=== PATIENT | male | born 1950 | race Caucasian/White ===

== ENCOUNTER 2018-05-06 20:30 | Observation (INO) | payer MEDICARE ==
[~2018-05-06] VITALS: Ht 172.7 cm; Wt 90.0 kg
[~2018-05-06 20:30] MED LIST: ALBU8.5H8 IH; AMLO10TA PO; ASPI-1265 PO; ATOR40TA3 PO; AZI25OT PO; CARB200T7 PO; GABA-532 PO; LACT1CAP26 PO; LISI-600 PO; MULT-933 PO; NICO-687 TD; PANT40TA4 PO; PRED20TA PO; TIOT4MIS3 IH
[2018-05-06 21:22] LABS: BASOPHILS % (AUTO) 0.4 % (0-1); EOSINOPHILS # (AUTO) 0.6 X10'3 (0-0.9); EOSINOPHILS % (AUTO) 6.7 % (0-6); HEMATOCRIT 38.1 % (42.0-52.0); LYMPHOCYTES % (AUTO) 23.9 % (21-51); MEAN CORPUSCULAR HEMOGLOBIN 33.6 PG (27.0-31.0); MEAN CORPUSCULAR VOLUME 98.9 FL (78-98); MEAN PLATELET VOLUME 6.3 FL (7.4-10.4); MONOCYTES % (AUTO) 11.6 % (2-12); NEUTROPHILS # (AUTO) 4.9 X10'3 (1.8-7.7); NEUTROPHILS % (AUTO) 57.4 % (42-75); PLATELET COUNT 218 X10'3 (140-440); RED BLOOD COUNT 3.86 X10'6 (4.70-6.10); RED CELL DISTRIBUTION WIDTH 14.8 % (11.5-14.5); WHITE BLOOD COUNT 8.5 X10'3 (4.5-11.0)
[2018-05-06] MEDS ORDERED: AMLODIPINE BESYLATE 10 MG TABS (21:26)
[2018-05-06] MEDS ORDERED: LISINOPRIL 40 MG (21:26)
[2018-05-06] MEDS ORDERED: PANTOPRAZOLE SODIUM 40 MG TBEC PO (21:26)
[2018-05-06] MEDS ORDERED: ATORVASTATIN CALCIUM 40 MG TAB PO (21:26)
[2018-05-06] MEDS ORDERED: EPITOL PO (21:26)
[2018-05-06] MEDS ORDERED: GABAPENTIN 300 MG CAPS (21:26)
[2018-05-06 21:32] LABS: PARTIAL THROMBOPLASTIN TIME 25 SECONDS (22-32)
[2018-05-06 21:39] LABS: ALANINE AMINOTRANSFERASE 26 U/L (12-78); ALBUMIN 3.5 G/DL (3.4-5.0); ALBUMIN/GLOBULIN RATIO 1.2 (1.1-1.5); ALKALINE PHOSPHATASE 109 IU/L (46-116); ANION GAP 10 (8-16); ASPARTATE AMINO TRANSFERASE 24 U/L (10-37); BILIRUBIN,TOTAL 0.2 MG/DL (0.1-1.0); BLOOD UREA NITROGEN 16 MG/DL (7-18); BUN/CREATININE RATIO 13.8 (5.4-32.0); CALCIUM 8.6 MG/DL (8.5-10.1); CHLORIDE 98 MMOL/L (99-107); CREATININE 1.16 MG/DL (0.60-1.10); GLUCOSE 98 MG/DL (70-104); POTASSIUM 4.1 MMOL/L (3.5-5.1); SODIUM 132 MMOL/L (135-145); TOTAL CARBON DIOXIDE 24.5 MMOL/L (24-32); TOTAL PROTEIN 6.5 G/DL (6.4-8.2); eGFR 63 ML/MIN
[2018-05-07] VITALS (14 sets, daily range): BP systolic 122–164; BP diastolic 47–103
[2018-05-07] MEDS ORDERED: magnesium hydroxide 30ml (MOM) UD suspension PO PRN (02:45)
[2018-05-07] MEDS ORDERED: ondansetron/PF 4mg/2ml inj IV PRN (02:45)
[2018-05-07] MEDS ORDERED: mag hydrox/Alum hydrox/simeth 30ml oral suspension PO PRN (02:45)
[2018-05-07] MEDS ORDERED: acetaminophen 325mg tablet PO PRN (02:45)
[2018-05-07] MEDS: albuterol 2.5 MG/3 ML nebule NEB PRN ×2 (04:08→16:39)
[2018-05-07] MEDS ORDERED: pantoprazole 40mg Tablet.DR PO SCH (07:30)
[2018-05-07] MEDS ORDERED: regadenoson 0.4mg/5ml syringe IV ONE ×2 (07:55→12:50)
[2018-05-07] MEDS ORDERED: CAFFEINE CITRATE 60 MG/3 ML injection vial IV PRN (07:55)
[2018-05-07] MEDS ORDERED: metoprolol tartrate 1mg/ml inj IV PRN (07:55)
[2018-05-07] MEDS ORDERED: nitroGLYCERIN 0.4mg SUBLingual tab SL PRN (07:55)
[2018-05-07] MEDS ORDERED: aspirin 81mg tab.chew PO SCH (08:00)
[2018-05-07] MEDS ORDERED: carBAMazepine 100mg chewable tablet PO SCH (08:00)
[2018-05-07] MEDS ORDERED: lisinopril 20mg tablet PO SCH (08:00)
[2018-05-07] MEDS ORDERED: amLODIPine 5mg tablet PO SCH (08:00)
[2018-05-07] MEDS ORDERED: heparin, porcine 5000 units/ml vial SQ SCH (08:00)
[2018-05-07] MEDS ORDERED: gabapentin 300mg capsule PO SCH (08:00)
[2018-05-07] MEDS ORDERED: CAFFEINE CITRATE 60 MG/3 ML injection vial IV ONE (12:50)
[2018-05-07] MEDS ORDERED: atorvastatin 20mg tablet PO SCH (21:00)
== END 2018-05-07 17:47 | disposition home or self-care (01) ==
LOC: ER 20:30 → ED HOLD 05-07 02:41 → PCU 3S 05-07 03:30
PROVIDERS: ADMIT Internal Medicine; ATTEND Hospitalist
DX: R07.89 Other chest pain (principal); R51 Headache; N28.9 Disorder of kidney and ureter, unspecified; I10 Essential (primary) hypertension; E78.5 Hyperlipidemia, unspecified; E78.00 Pure hypercholesterolemia, unspecified; D64.9 Anemia, unspecified; E87.1 Hypo-osmolality and hyponatremia; K21.9 Gastro-esophageal reflux disease without esophagitis; J44.9 Chronic obstructive pulmonary disease, unspecified; G62.9 Polyneuropathy, unspecified; M19.90 Unspecified osteoarthritis, unspecified site; M21.961 Unspecified acquired deformity of right lower leg; I25.2 Old myocardial infarction; I25.119 Atherosclerotic heart disease of native coronary artery with unspecified angina pectoris; F17.200 Nicotine dependence, unspecified, uncomplicated; G89.29 Other chronic pain; I24.9 Acute ischemic heart disease, unspecified; Z79.82 Long term (current) use of aspirin; Z95.0 Presence of cardiac pacemaker
CPT/HCPCS: 36415; 71045; 78452; 80053; 84484; 85025; 85610; 85730; 87070; 93005; 93017; 94640; 94760; 96374; 99285; A6449; A9500; G0378; J1644

== ENCOUNTER 2018-05-22 17:34 | Emergency (ER) | payer MEDICARE ==
[~2018-05-22] VITALS: Ht 172.7 cm; Wt 88.1 kg
[~2018-05-22 17:34] MED LIST changes: -AZI25OT PO; -CARB200T7 PO; +EPITOL PO; -LACT1CAP26 PO; -PANT40TA4 PO; -PRED20TA PO
[2018-05-22 18:20] LABS: BASOPHILS % (AUTO) 0.6 % (0-1); EOSINOPHILS # (AUTO) 0.5 X10'3 (0-0.9); EOSINOPHILS % (AUTO) 6.5 % (0-6); HEMATOCRIT 41.3 % (42.0-52.0); HEMOGLOBIN 14.5 g/dl (14.0-17.9); LYMPHOCYTES # (AUTO) 2.6 X10'3 (1.1-4.8); LYMPHOCYTES % (AUTO) 31.8 % (21-51); MEAN CORPUSCULAR HEMOGLOBIN 34.4 PG (27.0-31.0); MEAN CORPUSCULAR HGB CONC 35.1 % (33.0-36.5); MEAN PLATELET VOLUME 5.8 FL (7.4-10.4); MONOCYTES # (AUTO) 0.9 X10'3 (0-0.9); MONOCYTES % (AUTO) 10.8 % (2-12); NEUTROPHILS % (AUTO) 50.3 % (42-75); PLATELET COUNT 349 X10'3 (140-440); RED BLOOD COUNT 4.21 X10'6 (4.70-6.10); RED CELL DISTRIBUTION WIDTH 13.9 % (11.5-14.5)
[2018-05-22 18:30] LABS: CLARITY,URINE Clear (Clear); COLOR,URINE Yellow (Yellow); GLUCOSE, URINE Negative (Neg); KETONES,URINE Negative (Neg); LEUKOCYTE ESTERASE ,URINE Negative (Neg); NITRITES, URINE Negative (Neg); OCCULT BLOOD,URINE Trace (Neg); PH,URINE 7.5 (4.8-8.0); PROTEIN,URINE Negative (Neg)
[2018-05-22 18:34] LABS: ALANINE AMINOTRANSFERASE 27 U/L (12-78); ALBUMIN 4.1 G/DL (3.4-5.0); ALBUMIN/GLOBULIN RATIO 1.2 (1.1-1.5); ALKALINE PHOSPHATASE 149 IU/L (46-116); ANION GAP 8 (8-16); ASPARTATE AMINO TRANSFERASE 31 U/L (10-37); BILIRUBIN,TOTAL 0.4 MG/DL (0.1-1.0); BLOOD UREA NITROGEN 20 MG/DL (7-18); BUN/CREATININE RATIO 16.3 (5.4-32.0); CALCIUM 8.6 MG/DL (8.5-10.1); CHLORIDE 89 MMOL/L (99-107); CREATININE 1.23 MG/DL (0.60-1.10); GLUCOSE 100 MG/DL (70-104); POTASSIUM 4.8 MMOL/L (3.5-5.1); SODIUM 122 MMOL/L (135-145); TOTAL CARBON DIOXIDE 24.6 MMOL/L (24-32); TOTAL PROTEIN 7.4 G/DL (6.4-8.2); eGFR 59 ML/MIN
[2018-05-22 18:41] LABS: UA COLLECTION TYPE CLN CATCH MIDSTREAM
[2018-05-22 18:47] LABS: BACTERIA,URINE NONE SEEN /HPF (Neg); SQUAMOUS EPITHELIAL CELL,UR NONE SEEN /LPF (FEW); WBC,URINE NONE SEEN /HPF (0-4)
[2018-05-22 20:02] VITALS: BP 135/89
== END 2018-05-22 20:04 | disposition home or self-care (01) ==
LOC: ER 17:35
DX: E87.1 Hypo-osmolality and hyponatremia (principal); G62.9 Polyneuropathy, unspecified; I25.10 Atherosclerotic heart disease of native coronary artery without angina pectoris; E78.00 Pure hypercholesterolemia, unspecified; I10 Essential (primary) hypertension; I25.2 Old myocardial infarction; Z79.82 Long term (current) use of aspirin; Z79.899 Other long term (current) drug therapy
CPT/HCPCS: 36415; 80053; 81001; 85025; 99284

== ENCOUNTER 2018-08-22 08:46 | Emergency (ER) | payer MEDICARE ==
[~2018-08-22] VITALS: Ht 170.2 cm; Wt 80.0 kg
[2018-08-22 09:47] LABS: BASOPHILS # (AUTO) 0.1 X10'3 (0-0.2); BASOPHILS % (AUTO) 1.2 % (0-1); EOSINOPHILS # (AUTO) 0.3 X10'3 (0-0.9); EOSINOPHILS % (AUTO) 4.1 % (0-6); HEMATOCRIT 43.5 % (42.0-52.0); HEMOGLOBIN 15.2 g/dl (14.0-17.9); LYMPHOCYTES # (AUTO) 1.7 X10'3 (1.1-4.8); LYMPHOCYTES % (AUTO) 24.4 % (21-51); MEAN CORPUSCULAR HEMOGLOBIN 34.9 PG (27.0-31.0); MEAN CORPUSCULAR VOLUME 99.8 FL (78-98); MEAN PLATELET VOLUME 6.5 FL (7.4-10.4); MONOCYTES # (AUTO) 0.7 X10'3 (0-0.9); MONOCYTES % (AUTO) 9.2 % (2-12); NEUTROPHILS # (AUTO) 4.3 X10'3 (1.8-7.7); NEUTROPHILS % (AUTO) 61.1 % (42-75); PLATELET COUNT 338 X10'3 (140-440); RED BLOOD COUNT 4.36 X10'6 (4.70-6.10); RED CELL DISTRIBUTION WIDTH 13.3 % (11.5-14.5); WHITE BLOOD COUNT 7.1 X10'3 (4.5-11.0)
[2018-08-22 10:11] LABS: ALANINE AMINOTRANSFERASE 28 U/L (12-78); ALBUMIN 3.6 G/DL (3.4-5.0); ALBUMIN/GLOBULIN RATIO 1.1 (1.1-1.5); ALKALINE PHOSPHATASE 181 IU/L (46-116); ANION GAP 11 (8-16); ASPARTATE AMINO TRANSFERASE 38 U/L (10-37); BILIRUBIN,TOTAL 0.4 MG/DL (0.1-1.0); BLOOD UREA NITROGEN 20 MG/DL (7-18); BUN/CREATININE RATIO 13.8 (5.4-32.0); CALCIUM 8.9 MG/DL (8.5-10.1); CHLORIDE 97 MMOL/L (99-107); CREATININE 1.45 MG/DL (0.60-1.10); GLUCOSE 93 MG/DL (70-104); POTASSIUM 5.1 MMOL/L (3.5-5.1); SODIUM 134 MMOL/L (135-145); TOTAL CARBON DIOXIDE 26.5 MMOL/L (24-32); eGFR 49 ML/MIN
[2018-08-22 10:16] LABS: PARTIAL THROMBOPLASTIN TIME 29 SECONDS (22-32); PROTHROMBIN TIME 10.4 SECONDS (9.0-12.0)
[2018-08-22 10:48] LABS: CLARITY,URINE CLEAR (Clear); COLOR,URINE YELLOW (Yellow); GLUCOSE, URINE NEGATIVE (Neg); KETONES,URINE TRACE mg/dl (Neg); LEUKOCYTE ESTERASE ,URINE NEGATIVE (Neg); NITRITES, URINE NEGATIVE (Neg); OCCULT BLOOD,URINE NEGATIVE (Neg); PROTEIN,URINE NEGATIVE (Neg); UROBILINOGEN,URINE 0.2 E.U/dL (0.2-1.0)
[2018-08-22 10:53] LABS: UA COLLECTION TYPE CLN CATCH MIDSTREAM
[2018-08-22] MEDS ORDERED: normal saline 1000ML IV soln IVB ONE ×2 (11:30→12:30)
[2018-08-22 14:54] VITALS: BP 128/65
== END 2018-08-22 14:56 | disposition home or self-care (01) ==
LOC: ER 08:46
DX: E86.0 Dehydration (principal); R42 Dizziness and giddiness; I25.10 Atherosclerotic heart disease of native coronary artery without angina pectoris; E78.00 Pure hypercholesterolemia, unspecified; I10 Essential (primary) hypertension; I25.2 Old myocardial infarction; G62.9 Polyneuropathy, unspecified; Z98.890 Other specified postprocedural states; Z79.899 Other long term (current) drug therapy; Z79.82 Long term (current) use of aspirin
CPT/HCPCS: 36415; 71045; 80053; 81003; 84484; 85025; 85610; 85730; 96360; 96361; 99285; J7030

== ENCOUNTER 2018-09-30 14:28 | Day surgery (SDC) | payer MEDICARE ==
[~2018-09-30] VITALS: Ht 172.7 cm; Wt 78.7 kg
[2018-09-30] VITALS (9 sets, daily range): BP systolic 128–144; BP diastolic 58–75
[2018-09-30] MEDS ORDERED: LIDOcaine/PRILOcaine 5gm cream TP ONE (14:55)
[2018-09-30] MEDS ORDERED: normal saline 1000ml 1,000 ML IV SCH (14:55)
[2018-09-30] MEDS ORDERED: LORazepam 0.5 MG tablet PO PRN (14:55)
[2018-09-30] MEDS ORDERED: diphenhydrAMINE 25mg capsule PO PRN (14:55)
[2018-09-30] MEDS ORDERED: PHEN50TA2 PO (15:25)
[2018-09-30] MEDS ORDERED: BACL10TA PO ×2 (15:25→22:01)
[2018-09-30] MEDS ORDERED: midazolam 2 mg/2 ml injection ONE (19:27)
[2018-09-30] MEDS ORDERED: iohexol 350MG/ML 100ml bottle IV ONE (19:27)
[2018-09-30] MEDS ORDERED: verapamil 2.5 mg/ml inj IV ONE (19:27)
[2018-09-30] MEDS ORDERED: fentaNYL/PF 50MCG/1 ML 2ML syringe ONE (19:27)
[2018-09-30] MEDS ORDERED: nitroGLYCERIN-Tridil 50MG/D5W 250 ML IV ONE (19:27)
[2018-09-30] MEDS ORDERED: heparin 1,000unit/ml 10ml vial 10 ML ONE (19:27)
[2018-09-30] MEDS ORDERED: LIDOcaine 1% (10mg/ml)w/preservative injection 20ml MDV ONE (19:28)
[2018-09-30] MEDS ORDERED: proCHLORperazine 10 MG/2 ml inj IV PRN (20:50)
[2018-09-30] MEDS ORDERED: ondansetron/PF 4mg/2ml inj IV PRN (20:50)
[2018-09-30] MEDS ORDERED: OXAZEpam 15mg capsule PO PRN (20:50)
[2018-09-30] MEDS ORDERED: HYDROcodone/acetaminophen 5mg/325mg tablet PO PRN (20:50)
[2018-09-30] MEDS ORDERED: HYDROcodone/acetaminophen 10/325mg tab PO PRN (20:50)
[2018-09-30] MEDS ORDERED: atorvastatin 20mg tablet PO SCH (21:00)
[2018-09-30] MEDS ORDERED: phenytoin 50mg chewable tablet PO SCH (21:00)
[2018-09-30] MEDS ORDERED: Tiotropium Br/Olodaterol HCl (Stiolto Respimat Inhal Spray) IH SCH (21:05)
[2018-09-30] MEDS ORDERED: albuterol 2.5 MG/3 ML nebule NEB PRN (21:05)
[2018-09-30] MEDS ORDERED: gabapentin 300mg capsule PO SCH (22:00)
[2018-09-30] MEDS ORDERED: baclofen 10mg tablet PO SCH (22:03)
[2018-10-01] MEDS ORDERED: multivitamins, therapeutics tablet PO SCH (08:00)
[2018-10-01] MEDS ORDERED: baclofen 10mg tablet PO SCH (08:00)
[2018-10-01] MEDS ORDERED: lisinopril 20mg tablet PO SCH (08:00)
[2018-10-01] MEDS ORDERED: amLODIPine 5mg tablet PO SCH (08:00)
[2018-10-01] MEDS ORDERED: aspirin 81mg tab.chew PO SCH (08:00)
== END 2018-09-30 23:45 | disposition home or self-care (01) ==
LOC: SSTAY O 14:28 → PCU 3S 21:16 → SSTAY O 23:45
PROVIDERS: ATTEND Internal Medicine Interventional Cardiology
DX: I25.118 Atherosclerotic heart disease of native coronary artery with other forms of angina pectoris (principal); I10 Essential (primary) hypertension; E78.5 Hyperlipidemia, unspecified; I25.2 Old myocardial infarction; I45.81 Long QT syndrome; I44.7 Left bundle-branch block, unspecified; F17.210 Nicotine dependence, cigarettes, uncomplicated; K21.9 Gastro-esophageal reflux disease without esophagitis; J44.9 Chronic obstructive pulmonary disease, unspecified; F19.21 Other psychoactive substance dependence, in remission; F03.90 Unspecified dementia, unspecified severity, without behavioral disturbance, psychotic disturbance, mood disturbance, and anxiety; Z87.01 Personal history of pneumonia (recurrent); Z86.69 Personal history of other diseases of the nervous system and sense organs; Z86.74 Personal history of sudden cardiac arrest; Z79.82 Long term (current) use of aspirin; Z79.891 Long term (current) use of opiate analgesic; Z79.899 Other long term (current) drug therapy; Z98.890 Other specified postprocedural states
CPT/HCPCS: 93005; 93458; 99152; 99153; J1644; J2001; J2250; J3010; J7030; Q0163; Q9967; 93459; A4620; C1769; G0378; J3490

== ENCOUNTER 2019-12-26 15:33 | Emergency (ER) | payer MEDICARE ==
[~2019-12-26] VITALS: Ht 175.3 cm; Wt 73.8 kg
[~2019-12-26 15:33] MED LIST changes: -ATOR40TA3 PO; +ATOR40TA7 PO; +BACL10TA PO; -EPITOL PO; -NICO-687 TD; +PHEN50TA2 PO
[2019-12-26] MEDS ORDERED: dexamethasone 4mg tablet PO ONE (17:40)
--- NOTE | 2019-12-26 18:10 | NUR ---
Medicated as ordered with Decadron PO. Pt is awaiting CT results then pending disposition or futher orders.
[2019-12-26 18:37] VITALS: BP 172/86
== END 2019-12-26 18:42 | disposition home or self-care (01) ==
LOC: ER 15:35
DX: G62.9 Polyneuropathy, unspecified (principal); I25.10 Atherosclerotic heart disease of native coronary artery without angina pectoris; E78.00 Pure hypercholesterolemia, unspecified; I10 Essential (primary) hypertension; I25.2 Old myocardial infarction; Z95.0 Presence of cardiac pacemaker; Z98.890 Other specified postprocedural states; Z79.82 Long term (current) use of aspirin; Z79.899 Other long term (current) drug therapy
CPT/HCPCS: 70450; 99284

== ENCOUNTER 2020-03-05 06:32 | Emergency (ER) | payer MEDICARE ==
[~2020-03-05] VITALS: Ht 172.7 cm; Wt 85.0 kg
[2020-03-05] MEDS ORDERED: methylPREDNISolone sod succ 125mg/2ml vial IV ONE (06:40)
[2020-03-05 06:58] LABS: BASOPHILS # (AUTO) 0.1 X10'3 (0-0.2); BASOPHILS % (AUTO) 0.8 % (0-1); EOSINOPHILS # (AUTO) 1.4 X10'3 (0-0.9); EOSINOPHILS % (AUTO) 17.9 % (0-6); HEMATOCRIT 40.2 % (42.0-52.0); HEMOGLOBIN 13.5 g/dl (14.0-17.9); LYMPHOCYTES # (AUTO) 2.4 X10'3 (1.1-4.8); LYMPHOCYTES % (AUTO) 30.8 % (21-51); MEAN CORPUSCULAR HEMOGLOBIN 33.2 PG (27.0-31.0); MEAN CORPUSCULAR HGB CONC 33.5 g/dL (33.0-36.5); MEAN CORPUSCULAR VOLUME 98.9 FL (78-98); MEAN PLATELET VOLUME 6.2 FL (7.4-10.4); MONOCYTES # (AUTO) 0.8 X10'3 (0-0.9); NEUTROPHILS # (AUTO) 3.2 X10'3 (1.8-7.7); NEUTROPHILS % (AUTO) 40.5 % (42-75); PLATELET COUNT 403 X10'3 (140-440); RED BLOOD COUNT 4.07 X10'6 (4.70-6.10); RED CELL DISTRIBUTION WIDTH 15.8 % (11.5-14.5); WHITE BLOOD COUNT 7.8 X10'3 (4.5-11.0)
[2020-03-05 07:08] LABS: PARTIAL THROMBOPLASTIN TIME 29 SECONDS (22-32)
[2020-03-05 07:10] LABS: ALANINE AMINOTRANSFERASE 26 U/L (12-78); ALBUMIN 3.6 G/DL (3.4-5.0); ALKALINE PHOSPHATASE 182 IU/L (46-116); ANION GAP 6 (8-16); ASPARTATE AMINO TRANSFERASE 31 U/L (10-37); BILIRUBIN,TOTAL 0.2 MG/DL (0.1-1.0); BLOOD UREA NITROGEN 24 MG/DL (7-18); BUN/CREATININE RATIO 22.6 (5.4-32.0); CALCIUM 9.3 MG/DL (8.5-10.1); CHLORIDE 106 MMOL/L (99-107); CREATININE 1.06 MG/DL (0.60-1.10); GLUCOSE 102 MG/DL (70-104); POTASSIUM 4.9 MMOL/L (3.5-5.1); SODIUM 140 MMOL/L (135-145); TOTAL CARBON DIOXIDE 28.1 MMOL/L (24-32); TOTAL PROTEIN 7.2 G/DL (6.4-8.2); eGFR 69 ML/MIN
[2020-03-05] MEDS ORDERED: PRED20TA PO (08:03)
[2020-03-05] MEDS ORDERED: ipratropium/albuterol 3ml nebule NEB ONE (08:05)
[2020-03-05 08:31] VITALS: BP 140/75
== END 2020-03-05 08:36 | disposition home or self-care (01) ==
LOC: ER 06:33
DX: J44.1 Chronic obstructive pulmonary disease with (acute) exacerbation (principal); R06.02 Shortness of breath; I25.10 Atherosclerotic heart disease of native coronary artery without angina pectoris; E78.00 Pure hypercholesterolemia, unspecified; I10 Essential (primary) hypertension; I25.2 Old myocardial infarction; Z98.890 Other specified postprocedural states; Z79.82 Long term (current) use of aspirin; Z79.899 Other long term (current) drug therapy
CPT/HCPCS: 36415; 71045; 80053; 83880; 84484; 85025; 85610; 85730; 94640; 96374; 99284; J2930; 94760

== ENCOUNTER 2020-04-06 12:30 | Emergency (ER) | payer MEDICARE ==
[~2020-04-06] VITALS: Ht 170.2 cm; Wt 80.0 kg
[2020-04-06 13:04] LABS: BASOPHILS # (AUTO) 0.1 X10'3 (0-0.2); EOSINOPHILS # (AUTO) 0.9 X10'3 (0-0.9); EOSINOPHILS % (AUTO) 12.7 % (0-6); HEMATOCRIT 38.8 % (42.0-52.0); HEMOGLOBIN 12.9 g/dl (14.0-17.9); LYMPHOCYTES # (AUTO) 1.6 X10'3 (1.1-4.8); MEAN CORPUSCULAR HEMOGLOBIN 33.3 PG (27.0-31.0); MEAN CORPUSCULAR HGB CONC 33.4 g/dL (33.0-36.5); MEAN CORPUSCULAR VOLUME 99.8 FL (78-98); MEAN PLATELET VOLUME 6.2 FL (7.4-10.4); MONOCYTES # (AUTO) 0.7 X10'3 (0-0.9); MONOCYTES % (AUTO) 9.8 % (2-12); NEUTROPHILS # (AUTO) 3.7 X10'3 (1.8-7.7); NEUTROPHILS % (AUTO) 53.5 % (42-75); PLATELET COUNT 298 X10'3 (140-440); RED BLOOD COUNT 3.88 X10'6 (4.70-6.10); RED CELL DISTRIBUTION WIDTH 15.1 % (11.5-14.5); WHITE BLOOD COUNT 6.9 X10'3 (4.5-11.0)
[2020-04-06 13:20] LABS: ALANINE AMINOTRANSFERASE 29 U/L (12-78); ALBUMIN 3.8 G/DL (3.4-5.0); ALBUMIN/GLOBULIN RATIO 1.2 (1.1-1.5); ALKALINE PHOSPHATASE 186 IU/L (46-116); ANION GAP 5 (8-16); ASPARTATE AMINO TRANSFERASE 28 U/L (10-37); BILIRUBIN,TOTAL 0.3 MG/DL (0.1-1.0); BLOOD UREA NITROGEN 10 MG/DL (7-18); BUN/CREATININE RATIO 9.8 (5.4-32.0); CHLORIDE 106 MMOL/L (99-107); CREATININE 1.02 MG/DL (0.60-1.10); GLUCOSE 95 MG/DL (70-104); POTASSIUM 4.7 MMOL/L (3.5-5.1); SODIUM 142 MMOL/L (135-145); TOTAL CARBON DIOXIDE 31.5 MMOL/L (24-32); eGFR 73 ML/MIN
[2020-04-06] MEDS ORDERED: albuterol 2.5 MG/3 ML nebule CONTNEB PRN (15:00)
[2020-04-06] MEDS ORDERED: methylPREDNISolone sod succ 125mg/2ml vial IV ONE (15:00)
--- NOTE | 2020-04-06 15:34 | NUR ---
RT AT BEDSIDE
[2020-04-06 15:46] LABS: BASOPHILS # (AUTO) 0.1 X10'3 (0-0.2); BASOPHILS % (AUTO) 0.8 % (0-1); EOSINOPHILS # (AUTO) 1.2 X10'3 (0-0.9); HEMATOCRIT 37.9 % (42.0-52.0); HEMOGLOBIN 12.7 g/dl (14.0-17.9); LYMPHOCYTES # (AUTO) 2.2 X10'3 (1.1-4.8); LYMPHOCYTES % (AUTO) 27.1 % (21-51); MEAN CORPUSCULAR HEMOGLOBIN 33.9 PG (27.0-31.0); MEAN CORPUSCULAR HGB CONC 33.5 g/dL (33.0-36.5); MEAN CORPUSCULAR VOLUME 101.2 FL (78-98); MEAN PLATELET VOLUME 6.4 FL (7.4-10.4); MONOCYTES # (AUTO) 0.8 X10'3 (0-0.9); MONOCYTES % (AUTO) 9.8 % (2-12); NEUTROPHILS # (AUTO) 3.8 X10'3 (1.8-7.7); NEUTROPHILS % (AUTO) 47.3 % (42-75); PLATELET COUNT 289 X10'3 (140-440); RED BLOOD COUNT 3.74 X10'6 (4.70-6.10); RED CELL DISTRIBUTION WIDTH 15.2 % (11.5-14.5)
[2020-04-06] MEDS ORDERED: PRED20TA PO (16:49)
[2020-04-06 17:12] VITALS: BP 133/89
== END 2020-04-06 17:16 | disposition home or self-care (01) ==
LOC: ER 12:30
DX: J44.1 Chronic obstructive pulmonary disease with (acute) exacerbation (principal); R06.02 Shortness of breath; I25.10 Atherosclerotic heart disease of native coronary artery without angina pectoris; E78.00 Pure hypercholesterolemia, unspecified; I10 Essential (primary) hypertension; I25.2 Old myocardial infarction; J45.909 Unspecified asthma, uncomplicated; Z95.0 Presence of cardiac pacemaker; Z98.890 Other specified postprocedural states; Z79.82 Long term (current) use of aspirin; Z79.899 Other long term (current) drug therapy
CPT/HCPCS: 36415; 71046; 80053; 83880; 84484; 85025; 93005; 94644; 96374; 99285; J2930; 94760

== ENCOUNTER 2020-05-05 21:13 | Emergency (ER) | payer MEDICARE ==
[~2020-05-05] VITALS: Ht 170.2 cm; Wt 77.3 kg
[2020-05-05] MEDS ORDERED: DOXYCYCLINE 100MG CAPSULE PO STA (21:22)
[2020-05-05] MEDS ORDERED: dexamethasone sod phosphate 10mg/ml inj IV STA (21:22)
[2020-05-05] MEDS ORDERED: ipratropium/albuterol 3ml nebule NEB ONE (21:25)
[2020-05-05 21:48] LABS: BASOPHILS # (AUTO) 0.1 X10'3 (0-0.2); BASOPHILS % (AUTO) 1.2 % (0-1); EOSINOPHILS # (AUTO) 1.5 X10'3 (0-0.9); EOSINOPHILS % (AUTO) 23.7 % (0-6); HEMATOCRIT 43.9 % (42.0-52.0); HEMOGLOBIN 14.6 g/dl (14.0-17.9); LYMPHOCYTES # (AUTO) 2.2 X10'3 (1.1-4.8); LYMPHOCYTES % (AUTO) 33.9 % (21-51); MEAN CORPUSCULAR HEMOGLOBIN 33.6 PG (27.0-31.0); MEAN CORPUSCULAR HGB CONC 33.3 g/dL (33.0-36.5); MEAN CORPUSCULAR VOLUME 100.8 FL (78-98); MEAN PLATELET VOLUME 6.4 FL (7.4-10.4); MONOCYTES # (AUTO) 0.6 X10'3 (0-0.9); MONOCYTES % (AUTO) 9.9 % (2-12); NEUTROPHILS % (AUTO) 31.3 % (42-75); PLATELET COUNT 249 X10'3 (140-440); RED BLOOD COUNT 4.35 X10'6 (4.70-6.10); RED CELL DISTRIBUTION WIDTH 14.8 % (11.5-14.5); WHITE BLOOD COUNT 6.5 X10'3 (4.5-11.0)
[2020-05-05 22:05] LABS: ALANINE AMINOTRANSFERASE 24 U/L (12-78); ALBUMIN 4.2 G/DL (3.4-5.0); ALBUMIN/GLOBULIN RATIO 1.2 (1.1-1.5); ALKALINE PHOSPHATASE 187 IU/L (46-116); ANION GAP 9 (8-16); ASPARTATE AMINO TRANSFERASE 30 U/L (10-37); BILIRUBIN,TOTAL 0.3 MG/DL (0.1-1.0); BLOOD UREA NITROGEN 15 MG/DL (7-18); BUN/CREATININE RATIO 13.8 (5.4-32.0); CALCIUM 9.4 MG/DL (8.5-10.1); CHLORIDE 107 MMOL/L (99-107); CREATININE 1.09 MG/DL (0.60-1.10); PLATELET ESTIMATE NORMAL; POTASSIUM 4.3 MMOL/L (3.5-5.1); SODIUM 144 MMOL/L (135-145); TOTAL CARBON DIOXIDE 27.8 MMOL/L (24-32); TOTAL CELLS COUNTED 100; TOTAL PROTEIN 7.6 G/DL (6.4-8.2); eGFR 67 ML/MIN
[2020-05-05 22:06] LABS: GLUCOSE 99 MG/DL (70-104)
--- NOTE | 2020-05-05 22:52 | NUR ---
PT CONVERSING WITH VISITOR AT BEDSIDE. STATES NO NEEDS AT THIS TIME.
[2020-05-05] MEDS ORDERED: ALBU8HFA PO (23:44)
[2020-05-05] MEDS ORDERED: DOXY100C43 PO (23:44)
[2020-05-05] MEDS ORDERED: PRED20TA PO (23:44)
[2020-05-05] MEDS ORDERED: ALB0.5UD IH (23:44)
--- NOTE | 2020-05-05 23:45 | NUR ---
TOOK PT TO BR VIA W/C AND HE VOIDED. HE IS FEELING SO MUCH BETTER AND FAMILY AT BS AND MD JUST WENT INTO THE ROOM AND STATED HE WILL BE DC HIM.
[2020-05-06 00:02] VITALS: BP 138/100
[2020-05-06 08:27] LABS: BASOPHILS % (MANUAL) 2 % (0-1)
[2020-05-06 08:30] LABS: EOSINOPHILS % (MANUAL) 19 % (0-6); LYMPHOCYTES % (MANUAL) 38 % (21-51); NEUTROPHILS % (MANUAL) 36 % (42-75)
[2020-05-06 08:32] LABS: ANISOCYTOSIS 1+
--- NOTE | 2020-05-06 08:35 | NUR ---
NOTIFIED BY LAB CORRECTION IN MANUAL DIF ON CBC
[2020-05-07] MEDS ORDERED: METO50TA16 PO (04:27)
[2020-05-07] MEDS ORDERED: LISI40TA4 PO (04:27)
[2020-05-07] MEDS ORDERED: PRED5TAB PO (04:27)
[2020-05-08] MEDS ORDERED: LEVO250T58 PO (11:53)
[2020-05-08] MEDS ORDERED: IPRA3AMP9 NEB (11:53)
[2020-05-08] MEDS ORDERED: PRED5TAB PO (11:53)
[2020-05-08] MEDS ORDERED: COMP1EAC86 INH (11:55)
== END 2020-05-06 00:03 | disposition home or self-care (01) ==
LOC: ER 21:13
DX: J44.1 Chronic obstructive pulmonary disease with (acute) exacerbation (principal); J45.901 Unspecified asthma with (acute) exacerbation; R06.02 Shortness of breath; R05 Cough; R91.8 Other nonspecific abnormal finding of lung field; I25.10 Atherosclerotic heart disease of native coronary artery without angina pectoris; E78.00 Pure hypercholesterolemia, unspecified; I10 Essential (primary) hypertension; I25.2 Old myocardial infarction; Z95.0 Presence of cardiac pacemaker; Z79.82 Long term (current) use of aspirin; Z79.2 Long term (current) use of antibiotics; Z79.899 Other long term (current) drug therapy
CPT/HCPCS: 36415; 71045; 80053; 83605; 83880; 84484; 85025; 87040; 87070; 93005; 94640; 96374; 99285; J1100; 94760

== ENCOUNTER 2020-05-22 17:43 | Emergency (ER) | payer MEDICARE ==
[~2020-05-22] VITALS: Ht 172.7 cm; Wt 73.6 kg
[~2020-05-22 17:43] MED LIST changes: +COMP1EAC86 INH; +IPRA3AMP9 NEB; +LEVO250T58 PO; -LISI-600 PO; +LISI40TA4 PO; +METO50TA16 PO; +PRED5TAB PO
--- NOTE | 2020-05-22 17:59 | NUR ---
Spoke with Dr. Edilma FONSECA and informed that pt. had total relief by symptoms with Neb at home. only EKG ordered.
[2020-05-22] MEDS ORDERED: predniSONE 20 mg tablet PO ONE (18:25)
[2020-05-22] MEDS ORDERED: ipratropium/albuterol 3ml nebule NEB ONE (18:25)
[2020-05-22 18:55] LABS: BASOPHILS # (AUTO) 0.1 X10'3 (0-0.2); BASOPHILS % (AUTO) 0.8 % (0-1); EOSINOPHILS # (AUTO) 2.1 X10'3 (0-0.9); EOSINOPHILS % (AUTO) 24.6 % (0-6); HEMATOCRIT 42.4 % (42.0-52.0); HEMOGLOBIN 14.4 g/dl (14.0-17.9); LYMPHOCYTES # (AUTO) 2.3 X10'3 (1.1-4.8); MEAN CORPUSCULAR HEMOGLOBIN 33.9 PG (27.0-31.0); MEAN CORPUSCULAR HGB CONC 33.8 g/dL (33.0-36.5); MEAN CORPUSCULAR VOLUME 100.2 FL (78-98); MEAN PLATELET VOLUME 6.8 FL (7.4-10.4); MONOCYTES # (AUTO) 0.8 X10'3 (0-0.9); MONOCYTES % (AUTO) 9.1 % (2-12); NEUTROPHILS # (AUTO) 3.1 X10'3 (1.8-7.7); NEUTROPHILS % (AUTO) 37.5 % (42-75); PLATELET COUNT 235 X10'3 (140-440); RED BLOOD COUNT 4.24 X10'6 (4.70-6.10); WHITE BLOOD COUNT 8.4 X10'3 (4.5-11.0)
[2020-05-22 19:03] LABS: ALANINE AMINOTRANSFERASE 24 U/L (12-78); ALBUMIN 3.7 G/DL (3.4-5.0); ALBUMIN/GLOBULIN RATIO 1.3 (1.1-1.5); ALKALINE PHOSPHATASE 148 IU/L (46-116); ANION GAP 4 (8-16); ASPARTATE AMINO TRANSFERASE 31 U/L (10-37); BILIRUBIN,TOTAL 0.2 MG/DL (0.1-1.0); BLOOD UREA NITROGEN 22 MG/DL (7-18); BUN/CREATININE RATIO 17.7 (5.4-32.0); CALCIUM 8.6 MG/DL (8.5-10.1); CHLORIDE 108 MMOL/L (99-107); CREATININE 1.24 MG/DL (0.60-1.10); PARTIAL THROMBOPLASTIN TIME 28 SECONDS (22-32); POTASSIUM 4.7 MMOL/L (3.5-5.1); SODIUM 143 MMOL/L (135-145); TOTAL CARBON DIOXIDE 31.3 MMOL/L (24-32); TOTAL PROTEIN 6.6 G/DL (6.4-8.2); eGFR 58 ML/MIN
[2020-05-22 19:16] LABS: GLUCOSE 110 MG/DL (70-104)
[2020-05-22] MEDS ORDERED: PRED20TA PO (19:30)
[2020-05-22 19:37] LABS: TOTAL CELLS COUNTED 100
[2020-05-22 19:38] LABS: PLATELET ESTIMATE NORMAL
[2020-05-22 20:12] VITALS: BP 159/74
== END 2020-05-22 20:13 | disposition home or self-care (01) ==
LOC: ER 17:44
DX: J44.1 Chronic obstructive pulmonary disease with (acute) exacerbation (principal); G62.9 Polyneuropathy, unspecified; I25.10 Atherosclerotic heart disease of native coronary artery without angina pectoris; E78.00 Pure hypercholesterolemia, unspecified; I10 Essential (primary) hypertension; I25.2 Old myocardial infarction; Z95.0 Presence of cardiac pacemaker; Z98.890 Other specified postprocedural states; Z79.82 Long term (current) use of aspirin; Z79.899 Other long term (current) drug therapy; Z87.891 Personal history of nicotine dependence
CPT/HCPCS: 36415; 71045; 80053; 83880; 85025; 85610; 85730; 93005; 94640; 99285; J7512; 94760

== ENCOUNTER 2020-06-03 09:37 | Emergency (ER) | payer MEDICARE ==
[~2020-06-03] VITALS: Ht 172.7 cm; Wt 67.0 kg
[~2020-06-03 09:37] MED LIST changes: -COMP1EAC86 INH; +FURO-150 PO; +IPRA3AMP31 NEB; -IPRA3AMP9 NEB; -LEVO250T58 PO; +LEVO500T89 PO; +METO-384 PO; -METO50TA16 PO; +PANT-47 PO; +PRED10TA23 PO; -PRED5TAB PO; -TIOT4MIS3 IH
--- NOTE | 2020-06-03 09:55 | NUR ---
Note mateoashley in ED - 06/03/20 at 1055 by GAVIN RECEIVED A CALL FROM EKT[facility]ooker) [phone] STATING THAT THE PATIENT'S PCP NEEDS TO BE NOTIFIED AND THAT HE NEEDS TO GET TO [facility]. STATES THAT THE PATIENT NEEDS EDUCATION REGARDING HOW TO MANAGE HIS COPD AND ANXIETY BECAUSE HE LIVES ALONE AND WILL CONTINUE TO KEEP CALLING EMS AND RETURING TO THE HOSPITAL.
--- NOTE | 2020-06-03 09:55 | NUR ---
RECEIVED A CALL FROM NATALIE) [phone] STATING THAT THE PATIENT'S PCP NEEDS TO BE NOTIFIED AND THAT HE NEEDS TO GET TO [facility]. STATES THAT THE PATIENT NEEDS EDUCATION REGARDING HOW TO MANAGE HIS COPD AND ANXIETY BECAUSE HE LIVES ALONE AND WILL CONTINUE TO KEEP CALLING EMS AND RETURING TO THE HOSPITAL.
[2020-06-03] MEDS ORDERED: MECL-159 PO (10:51)
--- NOTE | 2020-06-03 11:01 | NUR ---
DAUGHTER CALLED FOR A RIDE, WILL BE ON HER WAY SHORTLY.
[2020-06-03 11:06] VITALS: BP 174/76
== END 2020-06-03 11:30 | disposition home or self-care (01) ==
LOC: ER 09:37
DX: R42 Dizziness and giddiness (principal); G62.9 Polyneuropathy, unspecified; I25.10 Atherosclerotic heart disease of native coronary artery without angina pectoris; E78.00 Pure hypercholesterolemia, unspecified; I10 Essential (primary) hypertension; I25.2 Old myocardial infarction; J44.9 Chronic obstructive pulmonary disease, unspecified; Z95.0 Presence of cardiac pacemaker; Z98.890 Other specified postprocedural states; Z79.82 Long term (current) use of aspirin; Z79.899 Other long term (current) drug therapy
CPT/HCPCS: 93005; 99284

== ENCOUNTER 2020-06-18 21:38 | Emergency (ER) | payer MEDICARE ==
[~2020-06-18] VITALS: Ht 172.7 cm; Wt 75.0 kg
[~2020-06-18 21:38] MED LIST changes: +MECL-159 PO
[2020-06-18] MEDS ORDERED: azithromycin/NS 500mg/250ml 250 ML IV ONE (22:05)
[2020-06-18] MEDS ORDERED: methylPREDNISolone sod succ 125mg/2ml vial IV ONE (22:05)
[2020-06-18 22:22] LABS: BASOPHILS # (AUTO) 0.1 X10'3 (0-0.2); BASOPHILS % (AUTO) 0.8 % (0-1); EOSINOPHILS # (AUTO) 1.7 X10'3 (0-0.9); EOSINOPHILS % (AUTO) 25.2 % (0-6); HEMATOCRIT 41.2 % (42.0-52.0); HEMOGLOBIN 13.9 g/dl (14.0-17.9); LYMPHOCYTES # (AUTO) 1.6 X10'3 (1.1-4.8); LYMPHOCYTES % (AUTO) 23.3 % (21-51); MEAN CORPUSCULAR HEMOGLOBIN 33.5 PG (27.0-31.0); MEAN CORPUSCULAR HGB CONC 33.7 g/dL (33.0-36.5); MEAN CORPUSCULAR VOLUME 99.4 FL (78-98); MEAN PLATELET VOLUME 6.3 FL (7.4-10.4); MONOCYTES # (AUTO) 0.7 X10'3 (0-0.9); MONOCYTES % (AUTO) 10.2 % (2-12); NEUTROPHILS # (AUTO) 2.8 X10'3 (1.8-7.7); NEUTROPHILS % (AUTO) 40.5 % (42-75); PLATELET COUNT 322 X10'3 (140-440); RED BLOOD COUNT 4.15 X10'6 (4.70-6.10); RED CELL DISTRIBUTION WIDTH 14.6 % (11.5-14.5); WHITE BLOOD COUNT 6.8 X10'3 (4.5-11.0)
[2020-06-18 22:34] LABS: ALANINE AMINOTRANSFERASE 39 U/L (12-78); ALBUMIN 3.9 G/DL (3.4-5.0); ALBUMIN/GLOBULIN RATIO 1.2 (1.1-1.5); ALKALINE PHOSPHATASE 154 IU/L (46-116); ANION GAP 7 (8-16); ASPARTATE AMINO TRANSFERASE 43 U/L (10-37); BILIRUBIN,TOTAL 0.2 MG/DL (0.1-1.0); BLOOD UREA NITROGEN 17 MG/DL (7-18); BUN/CREATININE RATIO 12.4 (5.4-32.0); CHLORIDE 103 MMOL/L (99-107); CREATININE 1.37 MG/DL (0.60-1.10); POTASSIUM 4.3 MMOL/L (3.5-5.1); SODIUM 139 MMOL/L (135-145); TOTAL CARBON DIOXIDE 29.5 MMOL/L (24-32); TOTAL PROTEIN 7.2 G/DL (6.4-8.2); eGFR 52 ML/MIN
[2020-06-18 22:46] LABS: GLUCOSE 117 MG/DL (70-104)
[2020-06-18] MEDS ORDERED: AZIT-63 PO (23:00)
[2020-06-18] MEDS ORDERED: PRED20TA PO (23:00)
[2020-06-18 23:09] LABS: ANISOCYTOSIS 1+; PLATELET ESTIMATE NORMAL; TOTAL CELLS COUNTED 100
--- NOTE | 2020-06-18 23:40 | NUR ---
Made contacted with Isis, (daughter) and notified her that pt would be discharged in approx 30 min after IV antibiotic is finished. She stated that she would be coming to get him. to give him a ride home.
[2020-06-19 00:46] VITALS: BP 131/70
[2020-06-20] MEDS ORDERED: PANT40TA4 PO (05:39)
[2020-06-20] MEDS ORDERED: ALBU18HF2 INH (05:39)
[2020-06-20] MEDS ORDERED: FURO20TA4 PO (05:39)
[2020-06-20] MEDS ORDERED: PHEN100C12 PO (23:34)
[2020-06-20] MEDS ORDERED: MECL-159 PO (23:48)
[2020-06-21] MEDS ORDERED: IPRA3AMP31 IH (11:22)
[2020-06-21] MEDS ORDERED: LORA-269 PO (11:22)
== END 2020-06-19 00:48 | disposition home or self-care (01) ==
LOC: ER 21:38
DX: J44.1 Chronic obstructive pulmonary disease with (acute) exacerbation (principal); G62.9 Polyneuropathy, unspecified; I25.10 Atherosclerotic heart disease of native coronary artery without angina pectoris; E78.00 Pure hypercholesterolemia, unspecified; I10 Essential (primary) hypertension; I25.2 Old myocardial infarction; Z95.0 Presence of cardiac pacemaker; Z98.890 Other specified postprocedural states; Z87.891 Personal history of nicotine dependence; Z79.82 Long term (current) use of aspirin; Z79.2 Long term (current) use of antibiotics; Z79.899 Other long term (current) drug therapy
CPT/HCPCS: 36415; 71046; 80053; 83605; 83880; 85025; 87040; 93005; 96365; 96366; 96375; 99285; J0456; J2930

== ENCOUNTER 2020-06-20 05:17 | Emergency (ER) | payer MEDICARE ==
[~2020-06-20] VITALS: Ht 172.7 cm; Wt 69.1 kg
[~2020-06-20 05:17] MED LIST changes: +AZIT-63 PO; +PRED20TA PO
--- NOTE | 2020-06-20 05:37 | NUR ---
PT BELIEVES THAT HIS PACEMAKER IS A [employer] (HE DOESN'T HAVE THE CARD WITH HIM) - 3 ATTEMPTS WERE MADE TO INTERROGATE THE PACEMAKER. NO ERRORS FROM THE DEVICE BUT THE "READ" AND "TRANSMIT" ICONS NEVER ILLUMINATED INDICATED ON THE INSTRUCTION CARD. THE "STARS" ICON DID ILLUMINATE SO IT IS POSSIBLE THAT IT DID TRANSMIT AFTERALL. WE WILL CHECK THE FAX AND THEN CALL TECH SUPPORT IF WE DON'T SEE THE FAX PRINTOUT SHORTLY.
[2020-06-20] MEDS ORDERED: PANT40TA4 PO (05:39)
[2020-06-20] MEDS ORDERED: ALBU18HF2 INH (05:39)
[2020-06-20] MEDS ORDERED: FURO20TA4 PO (05:39)
[2020-06-20 05:50] LABS: BASOPHILS # (AUTO) 0.1 X10'3 (0-0.2); BASOPHILS % (AUTO) 1.1 % (0-1); EOSINOPHILS # (AUTO) 1.6 X10'3 (0-0.9); EOSINOPHILS % (AUTO) 22.5 % (0-6); HEMATOCRIT 40.4 % (42.0-52.0); HEMOGLOBIN 13.7 g/dl (14.0-17.9); LYMPHOCYTES # (AUTO) 1.9 X10'3 (1.1-4.8); LYMPHOCYTES % (AUTO) 26.5 % (21-51); MEAN CORPUSCULAR HEMOGLOBIN 33.2 PG (27.0-31.0); MEAN CORPUSCULAR HGB CONC 33.8 g/dL (33.0-36.5); MEAN CORPUSCULAR VOLUME 98.2 FL (78-98); MEAN PLATELET VOLUME 6.5 FL (7.4-10.4); MONOCYTES # (AUTO) 0.8 X10'3 (0-0.9); MONOCYTES % (AUTO) 10.4 % (2-12); NEUTROPHILS # (AUTO) 2.9 X10'3 (1.8-7.7); NEUTROPHILS % (AUTO) 39.5 % (42-75); PLATELET COUNT 291 X10'3 (140-440); RED BLOOD COUNT 4.12 X10'6 (4.70-6.10); RED CELL DISTRIBUTION WIDTH 14.4 % (11.5-14.5); WHITE BLOOD COUNT 7.3 X10'3 (4.5-11.0)
--- NOTE | 2020-06-20 06:16 | NUR ---
Per Yonis, EDMD indicated pacemaker may [employer]. Gustabo, community affairs director to contact Mfg seeking interrogation.
[2020-06-20 06:17] LABS: ALANINE AMINOTRANSFERASE 34 U/L (12-78); ALBUMIN/GLOBULIN RATIO 1.3 (1.1-1.5); ALKALINE PHOSPHATASE 149 IU/L (46-116); ANION GAP 10 (8-16); ASPARTATE AMINO TRANSFERASE 39 U/L (10-37); BILIRUBIN,TOTAL 0.3 MG/DL (0.1-1.0); BLOOD UREA NITROGEN 15 MG/DL (7-18); BUN/CREATININE RATIO 15.5 (5.4-32.0); CALCIUM 9.2 MG/DL (8.5-10.1); CHLORIDE 102 MMOL/L (99-107); CREATININE 0.97 MG/DL (0.60-1.10); GLUCOSE 98 MG/DL (70-104); SODIUM 137 MMOL/L (135-145); TOTAL CARBON DIOXIDE 25.5 MMOL/L (24-32); TOTAL PROTEIN 7.1 G/DL (6.4-8.2); eGFR 77 ML/MIN
--- NOTE | 2020-06-20 06:50 | NUR ---
Per Gustabo, community health worker, [employer] does not have any record of their device(s) associated with this pt. JUAN Curry updated.
--- NOTE | 2020-06-20 07:10 | NUR ---
Per pt's daughter sIis ([id number]) pacemaker is [employer], Model #: [id number], ASSURITY, dual chamber. Gustabo, unit coordinater, contacted [employer] requesting field manager be sent out to interrogate pacemaker in ed. JUAN Curry updated.
[2020-06-20 07:24] LABS: PLATELET ESTIMATE NORMAL; TOTAL CELLS COUNTED 100
--- NOTE | 2020-06-20 07:27 | NUR ---
Kathi ([phone]) from [employer] returned call regarding [employer] pacemaker (PM). She reports last PM transmittion was , with last commication 06/17/2020 reflecting no episodes, no afib. Will updated JUAN Curry and ask if he still wants [employer] Rep to come in to interrogate.
--- NOTE | 2020-06-20 07:28 | NUR ---
Updated JUAN Curry on pacemaker status per [facility] [employer] rep. Per Dr Curry, no reason for Rep to come in @ this time. Communicated info to Kathi who requested pt be instructed to manually transmit from home station, upon his return.
[2020-06-20 07:58] VITALS: BP 147/86
[2020-06-20] MEDS ORDERED: PHEN100C12 PO (23:34)
[2020-06-20] MEDS ORDERED: MECL-159 PO (23:48)
[2020-06-21] MEDS ORDERED: LORA-269 PO (11:22)
[2020-06-21] MEDS ORDERED: IPRA3AMP31 IH (11:22)
[2020-06-23] MEDS ORDERED: BUDE0.5A11 NEB (10:04)
[2020-06-23] MEDS ORDERED: CLON-565 PO (10:04)
[2020-06-23] MEDS ORDERED: PRED20TA PO (10:04)
== END 2020-06-20 08:08 | disposition home or self-care (01) ==
LOC: ER 05:17
DX: J44.1 Chronic obstructive pulmonary disease with (acute) exacerbation (principal); G62.9 Polyneuropathy, unspecified; I25.10 Atherosclerotic heart disease of native coronary artery without angina pectoris; E78.00 Pure hypercholesterolemia, unspecified; I10 Essential (primary) hypertension; I25.2 Old myocardial infarction; Z95.0 Presence of cardiac pacemaker; Z98.890 Other specified postprocedural states; Z79.82 Long term (current) use of aspirin; Z79.899 Other long term (current) drug therapy
CPT/HCPCS: 36415; 71045; 80053; 83880; 84484; 85025; 93005; 99285

== ENCOUNTER 2020-07-29 13:59 | Emergency (ER) | payer MEDICARE ==
[~2020-07-29] VITALS: Ht 172.7 cm; Wt 72.7 kg
[~2020-07-29 13:59] MED LIST changes: -AZIT-63 PO; +BUDE0.5A11 NEB; +CLON-565 PO; -FURO-150 PO; +FURO20TA4 PO; +IPRA3AMP31 IH; -IPRA3AMP31 NEB; -LEVO500T89 PO; -PANT-47 PO; +PANT40TA54 PO; +PHEN100C12 PO; -PHEN50TA2 PO; -PRED10TA23 PO; -PRED20TA PO
[2020-07-29] MEDS ORDERED: normal saline 1000ML IV soln IVB ONE (14:25)
[2020-07-29] MEDS ORDERED: ibuprofen tablet 400 MG TABLET PO ONE (15:40)
[2020-07-29] MEDS ORDERED: ibuprofen 200mg tablet PO ONE (15:40)
[2020-07-29 17:58] VITALS: BP 126/72
== END 2020-07-29 18:14 | disposition home or self-care (01) ==
LOC: ER 13:59
DX: S40.011A Contusion of right shoulder, initial encounter (principal); R42 Dizziness and giddiness; G62.9 Polyneuropathy, unspecified; I25.10 Atherosclerotic heart disease of native coronary artery without angina pectoris; E78.00 Pure hypercholesterolemia, unspecified; I10 Essential (primary) hypertension; I25.2 Old myocardial infarction; J44.9 Chronic obstructive pulmonary disease, unspecified; Z95.0 Presence of cardiac pacemaker; Z98.890 Other specified postprocedural states; Z79.82 Long term (current) use of aspirin; Z79.899 Other long term (current) drug therapy; W19.XXXA Unspecified fall, initial encounter; Y93.89 Activity, other specified; Y92.89 Other specified places as the place of occurrence of the external cause; Y99.8 Other external cause status
CPT/HCPCS: 73030; 93005; 96360; 99284; J7030

== ENCOUNTER 2020-08-23 09:10 | Emergency (ER) | payer MEDICARE ==
[~2020-08-23] VITALS: Ht 172.7 cm; Wt 75.0 kg
[2020-08-23] MEDS ORDERED: fentaNYL/PF 50MCG/1 ML 2ML syringe IV ONE (09:30)
[2020-08-23] MEDS ORDERED: OXYC-145 PO (10:11)
[2020-08-23] MEDS ORDERED: IBUP-1985 PO (10:11)
[2020-08-23] MEDS ORDERED: oxyCODONE/APAP 5-325mg tablet PO ONE (10:15)
--- NOTE | 2020-08-23 10:30 | NUR ---
TC TO DAUGHTER, SKYLA, TO INFORM OF DC PLAN AND DX.
[2020-08-23 10:56] VITALS: BP 140/94
== END 2020-08-23 10:58 | disposition home or self-care (01) ==
LOC: ER 09:11
DX: S42.292A Other displaced fracture of upper end of left humerus, initial encounter for closed fracture (principal); S61.512A Laceration without foreign body of left wrist, initial encounter; I25.10 Atherosclerotic heart disease of native coronary artery without angina pectoris; E78.00 Pure hypercholesterolemia, unspecified; I25.2 Old myocardial infarction; J44.9 Chronic obstructive pulmonary disease, unspecified; I10 Essential (primary) hypertension; Z98.890 Other specified postprocedural states; Z95.0 Presence of cardiac pacemaker; G62.9 Polyneuropathy, unspecified; Z79.82 Long term (current) use of aspirin; Z79.899 Other long term (current) drug therapy; W10.8XXA Fall (on) (from) other stairs and steps, initial encounter; Y93.89 Activity, other specified; Y92.89 Other specified places as the place of occurrence of the external cause; Y99.8 Other external cause status
CPT/HCPCS: 73030; 73060; 96374; 99284; J3010

== ENCOUNTER 2020-08-25 11:13 | Emergency (ER) | payer MEDICARE ==
[~2020-08-25] VITALS: Ht 182.9 cm; Wt 77.3 kg
[~2020-08-25 11:13] MED LIST changes: +IBUP-1985 PO; +OXYC-145 PO
[2020-08-25] MEDS ORDERED: acetaminophen 1,000mg/100ml IV 100 ML IV STA (11:18)
[2020-08-25] MEDS ORDERED: normal saline 1000ML IV soln IVB ONE (11:20)
[2020-08-25 11:21] VITALS: BP 125/50
[2020-08-25 12:08] LABS: BASOPHILS % (AUTO) 0.5 % (0-1); EOSINOPHILS % (AUTO) 0.6 % (0-6); HEMATOCRIT 34.9 % (42.0-52.0); HEMOGLOBIN 11.8 g/dl (14.0-17.9); LYMPHOCYTES # (AUTO) 1.3 X10'3 (1.1-4.8); LYMPHOCYTES % (AUTO) 17.9 % (21-51); MEAN CORPUSCULAR HEMOGLOBIN 34.1 PG (27.0-31.0); MEAN CORPUSCULAR HGB CONC 33.8 g/dL (33.0-36.5); MEAN CORPUSCULAR VOLUME 100.8 FL (78-98); MEAN PLATELET VOLUME 6.2 FL (7.4-10.4); MONOCYTES # (AUTO) 1.2 X10'3 (0-0.9); MONOCYTES % (AUTO) 16.4 % (2-12); NEUTROPHILS # (AUTO) 4.8 X10'3 (1.8-7.7); NEUTROPHILS % (AUTO) 64.6 % (42-75); PLATELET COUNT 245 X10'3 (140-440); RED BLOOD COUNT 3.46 X10'6 (4.70-6.10); RED CELL DISTRIBUTION WIDTH 14.7 % (11.5-14.5); WHITE BLOOD COUNT 7.4 X10'3 (4.5-11.0)
[2020-08-25 12:21] LABS: ALANINE AMINOTRANSFERASE 32 U/L (12-78); ALBUMIN 3.8 G/DL (3.4-5.0); ALBUMIN/GLOBULIN RATIO 1.1 (1.1-1.5); ALKALINE PHOSPHATASE 159 IU/L (46-116); ANION GAP 8 (8-16); ASPARTATE AMINO TRANSFERASE 36 U/L (10-37); BILIRUBIN,TOTAL 0.6 MG/DL (0.1-1.0); BLOOD UREA NITROGEN 32 MG/DL (7-18); BUN/CREATININE RATIO 23.4 (5.4-32.0); CALCIUM 8.9 MG/DL (8.5-10.1); CHLORIDE 96 MMOL/L (99-107); CREATININE 1.37 MG/DL (0.60-1.10); GLUCOSE 113 MG/DL (70-104); POTASSIUM 5.2 MMOL/L (3.5-5.1); SODIUM 131 MMOL/L (135-145); TOTAL CARBON DIOXIDE 27.2 MMOL/L (24-32); TOTAL PROTEIN 7.2 G/DL (6.4-8.2); eGFR 52 ML/MIN
[2020-08-25 12:34] LABS: PLATELET ESTIMATE NORMAL; TOTAL CELLS COUNTED 100
[2020-08-25] MEDS ORDERED: furosemide 20MG tablet PO ONE (12:40)
[2020-08-25] MEDS ORDERED: TRAM50TA2 PO (12:56)
== END 2020-08-25 14:11 | disposition home or self-care (01) ==
LOC: ER 11:14
DX: S42.212D Unspecified displaced fracture of surgical neck of left humerus, subsequent encounter for fracture with routine healing (principal); Z91.81 History of falling; M25.512 Pain in left shoulder; E86.0 Dehydration; R41.0 Disorientation, unspecified; R06.89 Other abnormalities of breathing; E87.6 Hypokalemia; I25.10 Atherosclerotic heart disease of native coronary artery without angina pectoris; E78.00 Pure hypercholesterolemia, unspecified; I10 Essential (primary) hypertension; I25.2 Old myocardial infarction; J44.9 Chronic obstructive pulmonary disease, unspecified; Z95.0 Presence of cardiac pacemaker; Z79.82 Long term (current) use of aspirin; Z79.899 Other long term (current) drug therapy; W01.0XXD Fall on same level from slipping, tripping and stumbling without subsequent striking against object, subsequent encounter
CPT/HCPCS: 36415; 70450; 71045; 73030; 80053; 85007; 85025; 93005; 96374; 99285; J0131; J7030

== ENCOUNTER 2020-09-13 05:23 | Inpatient (IN) | payer MEDICARE ==
[2020-09-10 11:39] LABS: BASOPHILS # (AUTO) 0.1 X10'3 (0-0.2); BASOPHILS % (AUTO) 1.1 % (0-1); EOSINOPHILS # (AUTO) 0.2 X10'3 (0-0.9); LYMPHOCYTES # (AUTO) 1.6 X10'3 (1.1-4.8); MEAN CORPUSCULAR HEMOGLOBIN 34.1 PG (27.0-31.0); MEAN CORPUSCULAR HGB CONC 33.4 g/dL (33.0-36.5); MEAN CORPUSCULAR VOLUME 101.9 FL (78-98); MEAN PLATELET VOLUME 5.4 FL (7.4-10.4); MONOCYTES # (AUTO) 0.8 X10'3 (0-0.9); MONOCYTES % (AUTO) 11.6 % (2-12); NEUTROPHILS # (AUTO) 4.4 X10'3 (1.8-7.7); NEUTROPHILS % (AUTO) 62.3 % (42-75); PRE OP HEMATOCRIT 38.8 % (42.0-52.0); PRE OP PLATELET COUNT 587 X10'3 (140-440); RED BLOOD COUNT 3.81 X10'6 (4.70-6.10); RED CELL DISTRIBUTION WIDTH 15.4 % (11.5-14.5)
[2020-09-10 11:53] LABS: PRE OP INR 1.1 INR; PRE OP PROTIME 10.9 SECONDS (9.0-12.0)
[2020-09-10 12:06] LABS: ALBUMIN 3.9 G/DL (3.4-5.0); ALBUMIN/GLOBULIN RATIO 1.1 (1.1-1.5); ALKALINE PHOSPHATASE 292 IU/L (46-116); BLOOD UREA NITROGEN 24 MG/DL (7-18); BUN/CREATININE RATIO 22.2 (5.4-32.0); CHLORIDE 99 MMOL/L (99-107); CREATININE 1.08 MG/DL (0.60-1.10); PRE OP ALT 32 U/L (30-65); PRE OP ANION GAP 8 (8-16); PRE OP AST 30 U/L (10-37); PRE OP BILIRUB, TOTAL 0.4 MG/DL (0.0-1.0); PRE OP GLUCOSE 77 MG/DL (70-104); PRE OP POTASSIUM 4.5 MMOL/L (3.4-5.1); PRE OP SODIUM 136 MMOL/L (135-145); TOTAL CARBON DIOXIDE 28.6 MMOL/L (24-32); TOTAL PROTEIN 7.6 G/DL (6.4-8.2); eGFR 68 ML/MIN
[2020-09-13] VITALS (18 sets, daily range): BP systolic 100–145; BP diastolic 42–71
[~2020-09-13] VITALS: Ht 167.6 cm; Wt 73.4 kg
[~2020-09-13 05:23] MED LIST changes: -CLON-565 PO; +DONE10TA44 PO; +ESCI10TA61 PO; -FURO20TA4 PO; -IBUP-1985 PO; -IPRA3AMP31 IH; -MECL-159 PO; -METO-384 PO; +NITR0.4T51 SL; -OXYC-145 PO; -PANT40TA54 PO; +TRAM50TA2 PO; +ceFAZolin 1GM/D5W- ADD-VANTAGE 50 ML IV ONE; +ringers solution, lacted 1,000 ML IV SCH
[2020-09-13] MEDS ORDERED: VANCOMYCIN INJ 1000 MG in NORMAL SALINE 250ml IV.SOLN IV ONE (05:30)
[2020-09-13] MEDS ORDERED: tranexamic acid inj. 750 MG in normal saline 100ml IV soln 100 ML IV ONE ×4 (05:30)
[2020-09-13] MEDS ORDERED: famotidine 20mg tablet PO ONE (05:30)
[2020-09-13] MEDS ORDERED: albuterol 2.5 MG/3 ML nebule NEB ONE (05:30)
[2020-09-13] MEDS ORDERED: ceFAZolin 2gm in dextrose, iso 50 ML IV ONE (05:30)
[2020-09-13] MEDS ORDERED: ketorolac trometh. 30mg/ml inj. ONE (07:30)
[2020-09-13] MEDS ORDERED: ROPIVAcaine 0.5% (5mg/ml) 30ml vial ONE (07:30)
[2020-09-13] MEDS ORDERED: BUPIVAcaine/PF 2.5mg/ml (0.25%) 10ml vial ONE (07:32)
[2020-09-13] MEDS ORDERED: midazolam 2 mg/2 ml injection ONE (07:35)
[2020-09-13] MEDS ORDERED: fentaNYL/PF 50MCG/1 ML 2ML syringe ONE ×2 (07:35→09:11)
[2020-09-13] MEDS ORDERED: propofol inj 20 ML IV ONE (07:42)
[2020-09-13] MEDS ORDERED: LIDOcaine 1%/PF 5ML 10 MG/ML VIAL ONE (07:42)
[2020-09-13] MEDS ORDERED: morphine 2 MG/ML inj. syringe IV PRN (09:40)
[2020-09-13] MEDS ORDERED: ondansetron/PF 4mg/2ml inj IV PRN ×2 (09:40→10:40)
[2020-09-13] MEDS ORDERED: ringers solution, lacted 1,000 ML IV SCH (09:40)
[2020-09-13] MEDS ORDERED: morphine 4 MG/ML inj SYRINge IV PRN (09:40)
[2020-09-13] MEDS ORDERED: meperidine/PF 25mg/ml syringe IV PRN ×3 (09:40)
[2020-09-13] MEDS ORDERED: ROPIVAcaine 0.2% (10 MG/5 ML) BOLUS INJECTION INTERSCALE PRN (09:40)
[2020-09-13] MEDS ORDERED: proCHLORperazine 10 MG/2 ml inj IV PRN (09:40)
[2020-09-13] MEDS ORDERED: phenylephrine 10mg/ml inj. ONE (09:56)
[2020-09-13] MEDS ORDERED: ePHEDrine 50MG/ML INJ. ONE (09:56)
[2020-09-13] MEDS ORDERED: ondansetron/PF 4mg/2ml inj ONE (09:56)
--- NOTE | 2020-09-13 10:22 | NUR ---
Received from OR via ortho bed, accompanied by Anesthesiologist Gamaliel and report given by Anesthesiolgist. VS stable, mask to 10L, sats 100%. Shoulder with island dressing, sling, on-q catheter exposed, pain ball to be administered. Pt sleepy but responsive. TXA and fluids hanging, 18G right forearm. SCDs on.
[2020-09-13] MEDS ORDERED: ROPIVAcaine 0.2%/PF PUMP/bolus 550 ML INTERSCALE SCH (10:30)
[2020-09-13] MEDS ORDERED: acetaminophen 325mg tablet PO PRN (10:40)
[2020-09-13] MEDS ORDERED: nitroGLYCERIN 0.4mg SUBLingual tab SL PRN (10:40)
[2020-09-13] MEDS ORDERED: magnesium hydroxide 30ml (MOM) UD suspension PO PRN (10:40)
[2020-09-13] MEDS ORDERED: bisacodyl 10mg suppository rectal RC PRN (10:40)
[2020-09-13] MEDS ORDERED: oxyCODONE IR 5mg (immed. release) tablet PO PRN ×2 (10:40)
[2020-09-13] MEDS ORDERED: traMADol 50MG tablet PO PRN (10:40)
[2020-09-13] MEDS ORDERED: diphenhydrAMINE 25mg capsule PO PRN ×2 (10:40)
[2020-09-13] MEDS ORDERED: HYDROmorphone inj. 0.5 MG/0.5 ML DISP.SYRIN IV PRN (10:40)
[2020-09-13] MEDS ORDERED: HYDROmorphone 1 mg/ml syringe IV PRN (10:40)
--- NOTE | 2020-09-13 10:55 | NUR ---
Pt alert and orient,ed responsive to all questions, very minimal but present motor movement to fingers. Moves all other extrems.
--- NOTE | 2020-09-13 11:32 | NUR ---
Report called to receiving nurse ANGELICA Goss. Transferred via ortho bed to room 4023B. Belongings sent with patient. Special Issues communicated to receiving nurse. BLL call light within reach, chart at bedside and VS stable.
[2020-09-13] MEDS ORDERED: tranexamic acid inj. 700 MG in normal saline 100ml IV soln 100 ML IV ONE (14:00)
[2020-09-13] MEDS: acetaminophen 325mg tablet PO SCH ×2 (14:30→20:17)
[2020-09-13] MEDS: ceFAZolin 1GM/D5W- ADD-VANTAGE 50 ML IV SCH (15:30)
--- NOTE | 2020-09-13 18:39 | NUR ---
Problems reprioritized. Patient report given, questions answered & plan of care reviewed with Jocelyn DOMINGUEZ.
[2020-09-13] MEDS ORDERED: vancomycin/NS 1 GM ADD-VANTAGE 250 ML IV SCH (20:00)
[2020-09-13] MEDS: lisinopril 20mg tablet PO SCH (20:17)
[2020-09-13] MEDS: sennosides 8.6mg tablet PO SCH (20:17)
[2020-09-13] MEDS: phenytoin sod ER 100mg capsule PO SCH (20:18)
[2020-09-13] MEDS: gabapentin 300mg capsule PO SCH (20:18)
[2020-09-13] MEDS: baclofen 10mg tablet PO SCH (20:18)
[2020-09-13] MEDS: potassium cl 20mEq in 1/2 NS 1,000 ML IV SCH (20:19)
[2020-09-13] MEDS: budesonide 0.5mg/2ml UD nebule IH SCH (20:19)
[2020-09-13] MEDS: atorvastatin 20mg tablet PO SCH (20:19)
[2020-09-13] MEDS: albuterol 2.5 MG/3 ML nebule NEB PRN (20:20)
[2020-09-14] MEDS ORDERED: ceFAZolin/D5W- 1GM premix 50 ML IV SCH (00:36)
[2020-09-14] MEDS: ceFAZolin 1GM/D5W- ADD-VANTAGE 50 ML IV SCH (00:54)
[2020-09-14 02:00] VITALS: BP 109/52
[2020-09-14] MEDS: acetaminophen 325mg tablet PO SCH ×4 (02:00→20:27)
[2020-09-14 06:00] VITALS: BP 118/61
[2020-09-14 06:08] LABS: BASOPHILS % (AUTO) 0.6 % (0-1); EOSINOPHILS # (AUTO) 0.1 X10'3 (0-0.9); EOSINOPHILS % (AUTO) 0.8 % (0-6); HEMATOCRIT 32.1 % (42.0-52.0); HEMOGLOBIN 10.8 g/dl (14.0-17.9); LYMPHOCYTES # (AUTO) 0.6 X10'3 (1.1-4.8); LYMPHOCYTES % (AUTO) 7.6 % (21-51); MEAN CORPUSCULAR HEMOGLOBIN 34.3 PG (27.0-31.0); MEAN CORPUSCULAR HGB CONC 33.7 g/dL (33.0-36.5); MEAN CORPUSCULAR VOLUME 101.9 FL (78-98); MEAN PLATELET VOLUME 5.9 FL (7.4-10.4); MONOCYTES # (AUTO) 0.8 X10'3 (0-0.9); MONOCYTES % (AUTO) 11.3 % (2-12); NEUTROPHILS # (AUTO) 5.9 X10'3 (1.8-7.7); NEUTROPHILS % (AUTO) 79.7 % (42-75); PLATELET COUNT 411 X10'3 (140-440); RED BLOOD COUNT 3.15 X10'6 (4.70-6.10); RED CELL DISTRIBUTION WIDTH 14.8 % (11.5-14.5); WHITE BLOOD COUNT 7.4 X10'3 (4.5-11.0)
[2020-09-14 06:10] LABS: ANION GAP 7 (8-16); CHLORIDE 100 MMOL/L (99-107); POTASSIUM 4.6 MMOL/L (3.5-5.1); SODIUM 134 MMOL/L (135-145); TOTAL CARBON DIOXIDE 26.9 MMOL/L (24-32)
--- NOTE | 2020-09-14 06:27 | NUR ---
REPORT GIVEN TO ANGELICA HINKLE.
--- NOTE | 2020-09-14 06:45 | NUR ---
Patient in room ORTHO 4023. I have received report from ANGELICA Banks and had the opportunity to ask questions and assume patient care.
[2020-09-14] MEDS: potassium cl 20mEq in 1/2 NS 1,000 ML IV SCH ×4 (07:05→18:40)
[2020-09-14] MEDS: donepezil 5mg tablet PO SCH (07:48)
[2020-09-14] MEDS: ESCITALOPRAM OXALATE 5 MG TABLET PO SCH (07:48)
[2020-09-14] MEDS: baclofen 10mg tablet PO SCH ×2 (07:49→20:24)
[2020-09-14] MEDS: multivitamins, therapeutics tablet PO SCH (07:50)
[2020-09-14] MEDS: amLODIPine 5mg tablet PO SCH (07:50)
[2020-09-14] MEDS: aspirin 325mg tablet PO SCH (07:50)
[2020-09-14] MEDS: gabapentin 300mg capsule PO SCH ×2 (07:50→20:21)
[2020-09-14] MEDS ORDERED: aspirin 81mg tab.chew PO SCH (08:00)
[2020-09-14] MEDS: albuterol 2.5 MG/3 ML nebule NEB PRN ×2 (09:16→20:08)
[2020-09-14] MEDS: budesonide 0.5mg/2ml UD nebule IH SCH ×2 (09:16→20:08)
[2020-09-14 10:51] VITALS: BP 91/46
[2020-09-14 14:00] VITALS: BP 112/46
[2020-09-14 18:00] VITALS: BP 105/42
--- NOTE | 2020-09-14 18:15 | NUR ---
RECEIVED REPORT FROM MANAN DOMINGUEZ AND ASSUMED PATIENT CARE
--- NOTE | 2020-09-14 18:19 | NUR ---
Problems reprioritized. Patient report given, questions answered & plan of care reviewed with ANGELICA Covarrubias.
[2020-09-14] MEDS: phenytoin sod ER 100mg capsule PO SCH (20:23)
[2020-09-14] MEDS: lisinopril 20mg tablet PO SCH (20:25)
[2020-09-14] MEDS: sennosides 8.6mg tablet PO SCH (20:26)
[2020-09-14] MEDS: atorvastatin 20mg tablet PO SCH (20:26)
[2020-09-14 22:00] VITALS: BP 111/48
[2020-09-15] MEDS: acetaminophen 325mg tablet PO SCH (02:00)
[2020-09-15] MEDS: potassium cl 20mEq in 1/2 NS 1,000 ML IV SCH (02:40)
[2020-09-15 05:53] LABS: BASOPHILS % (AUTO) 0.5 % (0-1); EOSINOPHILS # (AUTO) 0.5 X10'3 (0-0.9); EOSINOPHILS % (AUTO) 5.8 % (0-6); HEMATOCRIT 31.8 % (42.0-52.0); LYMPHOCYTES # (AUTO) 0.9 X10'3 (1.1-4.8); LYMPHOCYTES % (AUTO) 9.9 % (21-51); MEAN CORPUSCULAR HEMOGLOBIN 35.4 PG (27.0-31.0); MEAN CORPUSCULAR HGB CONC 34.7 g/dL (33.0-36.5); MEAN CORPUSCULAR VOLUME 101.9 FL (78-98); MONOCYTES # (AUTO) 1.3 X10'3 (0-0.9); MONOCYTES % (AUTO) 14.4 % (2-12); NEUTROPHILS # (AUTO) 6.2 X10'3 (1.8-7.7); NEUTROPHILS % (AUTO) 69.4 % (42-75); PLATELET COUNT 420 X10'3 (140-440); RED BLOOD COUNT 3.12 X10'6 (4.70-6.10); RED CELL DISTRIBUTION WIDTH 14.5 % (11.5-14.5); WHITE BLOOD COUNT 8.9 X10'3 (4.5-11.0)
[2020-09-15 06:00] VITALS: BP 133/68
--- NOTE | 2020-09-15 06:16 | NUR ---
REPORT GIVEN TO MARISOL DOMINGUEZ
[2020-09-15] MEDS: aspirin 325mg tablet PO SCH (09:29)
[2020-09-15] MEDS: multivitamins, therapeutics tablet PO SCH (09:29)
[2020-09-15] MEDS: ESCITALOPRAM OXALATE 5 MG TABLET PO SCH (09:30)
[2020-09-15] MEDS: donepezil 5mg tablet PO SCH (09:35)
[2020-09-15] MEDS: amLODIPine 5mg tablet PO SCH (09:35)
[2020-09-15] MEDS: gabapentin 300mg capsule PO SCH (09:35)
[2020-09-15] MEDS: baclofen 10mg tablet PO SCH (09:36)
[2020-09-15 10:00] VITALS: BP 134/79
[2020-09-15] MEDS: budesonide 0.5mg/2ml UD nebule IH SCH (10:03)
[2020-09-15] MEDS: albuterol 2.5 MG/3 ML nebule NEB PRN (10:03)
[2020-09-15] MEDS ORDERED: acetaminophen 325mg tablet PO PRN (10:40)
[2020-09-15] MEDS ORDERED: ASPI-1 PO (12:36)
[2020-09-15 14:00] VITALS: BP 100/61
== END 2020-09-15 16:54 | disposition home health service (06) | DRG 483 ==
LOC: UNDOADMIN 05:23 → PAS IN 05:23 → EDSTATUS 07:30 → PAS IN 10:40 → EDSTATUS 11:30 → PAS IN 11:40 → ORTHO 4S 11:40
PROVIDERS: ADMIT Orthopaedic Surgery; ATTEND Orthopaedic Surgery
PROC: 0RRK00Z Replacement of Left Shoulder Joint with Reverse Ball and Socket Synthetic Substitute, Open Approach (ICD-10-PCS; principal; 2020-09-13 07:55)
DX: S42.232A 3-part fracture of surgical neck of left humerus, initial encounter for closed fracture (principal); D50.0 Iron deficiency anemia secondary to blood loss (chronic); M19.012 Primary osteoarthritis, left shoulder; J44.9 Chronic obstructive pulmonary disease, unspecified; Z20.828 Contact with and (suspected) exposure to other viral communicable diseases; F03.90 Unspecified dementia, unspecified severity, without behavioral disturbance, psychotic disturbance, mood disturbance, and anxiety; I10 Essential (primary) hypertension; W18.30XA Fall on same level, unspecified, initial encounter; I25.2 Old myocardial infarction; Z79.899 Other long term (current) drug therapy; Z79.51 Long term (current) use of inhaled steroids; Y93.89 Activity, other specified; Y92.89 Other specified places as the place of occurrence of the external cause; Y99.8 Other external cause status
CPT/HCPCS: 36415; 71046; 80051; 80053; 80185; 82948; 85025; 85610; 85730; 87081; 87635; 93005; 94640; 94760; 97110; 97116; 97161; 97530; A4215; A4565; A4618; A7000; C1776; G0378; J0690; J1885; J2250; J2370; J2405; J2704; J2795; J3010; J3370; J3480; J3490; J7120; J7626

== ENCOUNTER 2020-11-15 22:05 | Emergency (ER) | payer MEDICARE ==
[~2020-11-15] VITALS: Ht 170.2 cm; Wt 76.8 kg
[~2020-11-15 22:05] MED LIST changes: +ASPI-1 PO; -ASPI-1265 PO; +ESCI-8 PO; -ESCI10TA61 PO; +LISI40TA13 PO; -LISI40TA4 PO; -TRAM50TA2 PO; -ceFAZolin 1GM/D5W- ADD-VANTAGE 50 ML IV ONE; -ringers solution, lacted 1,000 ML IV SCH
[2020-11-15 22:39] LABS: CLARITY,URINE CLOUDY (Clear); COLOR,URINE AMBER (Yellow); GLUCOSE, URINE NEGATIVE (Neg); KETONES,URINE NEGATIVE (Neg); LEUKOCYTE ESTERASE ,URINE TRACE (Neg); NITRITES, URINE NEGATIVE (Neg); OCCULT BLOOD,URINE LARGE (Neg); PROTEIN,URINE NEGATIVE (Neg); UROBILINOGEN,URINE 0.2 E.U/dL (0.2-1.0)
[2020-11-15 22:45] LABS: UA COLLECTION TYPE CLN CATCH MIDSTREAM
[2020-11-15 22:46] LABS: BACTERIA,URINE FEW /HPF (Neg); RBC,URINE TNTC /HPF (0-2); SQUAMOUS EPITHELIAL CELL,UR NONE SEEN /LPF (FEW); WBC,URINE 0-4 /HPF (0-4)
[2020-11-15 22:51] LABS: BASOPHILS # (AUTO) 0.1 X10'3 (0-0.2); EOSINOPHILS % (AUTO) 10.4 % (0-6); HEMATOCRIT 40.8 % (42.0-52.0); HEMOGLOBIN 13.6 g/dl (14.0-17.9); LYMPHOCYTES # (AUTO) 2.5 X10'3 (1.1-4.8); LYMPHOCYTES % (AUTO) 27.2 % (21-51); MEAN CORPUSCULAR HEMOGLOBIN 31.8 PG (27.0-31.0); MEAN CORPUSCULAR HGB CONC 33.3 g/dL (33.0-36.5); MEAN CORPUSCULAR VOLUME 95.7 FL (78-98); MEAN PLATELET VOLUME 6.2 FL (7.4-10.4); MONOCYTES # (AUTO) 1.2 X10'3 (0-0.9); MONOCYTES % (AUTO) 12.4 % (2-12); NEUTROPHILS # (AUTO) 4.6 X10'3 (1.8-7.7); PLATELET COUNT 302 X10'3 (140-440); RED BLOOD COUNT 4.26 X10'6 (4.70-6.10); WHITE BLOOD COUNT 9.4 X10'3 (4.5-11.0)
[2020-11-15 23:06] LABS: ALANINE AMINOTRANSFERASE 31 U/L (12-78); ALBUMIN 4.1 G/DL (3.4-5.0); ALBUMIN/GLOBULIN RATIO 1.1 (1.1-1.5); ALKALINE PHOSPHATASE 213 IU/L (46-116); ANION GAP 6 (8-16); ASPARTATE AMINO TRANSFERASE 31 U/L (10-37); BILIRUBIN,TOTAL 0.2 MG/DL (0.1-1.0); BLOOD UREA NITROGEN 29 MG/DL (7-18); BUN/CREATININE RATIO 21.5 (5.4-32.0); CALCIUM 8.8 MG/DL (8.5-10.1); CHLORIDE 103 MMOL/L (99-107); CREATININE 1.35 MG/DL (0.60-1.10); GLUCOSE 96 MG/DL (70-104); POTASSIUM 5.4 MMOL/L (3.5-5.1); SODIUM 136 MMOL/L (135-145); TOTAL CARBON DIOXIDE 27.3 MMOL/L (24-32); TOTAL PROTEIN 7.7 G/DL (6.4-8.2); eGFR 52 ML/MIN
[2020-11-15] MEDS ORDERED: CEPH250T PO (23:49)
[2020-11-16 00:11] VITALS: BP 126/70
== END 2020-11-16 00:14 | disposition home or self-care (01) ==
LOC: ER 22:06
DX: N39.0 Urinary tract infection, site not specified (principal); R31.9 Hematuria, unspecified; I11.9 Hypertensive heart disease without heart failure; J44.9 Chronic obstructive pulmonary disease, unspecified; Z79.899 Other long term (current) drug therapy
CPT/HCPCS: 36415; 80053; 81001; 85025; 87088; 99283

== ENCOUNTER 2021-01-04 21:56 | Emergency (ER) | payer MEDICARE ==
[~2021-01-04] VITALS: Ht 172.7 cm; Wt 75.0 kg
[2021-01-04] MEDS ORDERED: normal saline 1000ML IV soln IVB ONE ×2 (22:30→23:10)
[2021-01-04] MEDS ORDERED: ondansetron/PF 4mg/2ml inj IV ONE (22:30)
[2021-01-04] MEDS ORDERED: metoclopramide 5 mg/ml inj IV ONE (22:40)
[2021-01-04] MEDS ORDERED: diazepam inj 5 MG/ML inj. IV ONE (22:40)
[2021-01-04] MEDS ORDERED: famotidine/PF 10 mg/ml inj IV ONE (22:40)
[2021-01-04 22:48] LABS: BASOPHILS % (AUTO) 0.4 % (0-1); EOSINOPHILS # (AUTO) 0.2 X10'3 (0-0.9); EOSINOPHILS % (AUTO) 2.8 % (0-6); HEMATOCRIT 39.9 % (42.0-52.0); HEMOGLOBIN 13.8 g/dl (14.0-17.9); LYMPHOCYTES # (AUTO) 1.2 X10'3 (1.1-4.8); LYMPHOCYTES % (AUTO) 17.6 % (21-51); MEAN CORPUSCULAR HEMOGLOBIN 31.3 PG (27.0-31.0); MEAN CORPUSCULAR HGB CONC 34.5 g/dL (33.0-36.5); MEAN CORPUSCULAR VOLUME 90.8 FL (78-98); MEAN PLATELET VOLUME 5.9 FL (7.4-10.4); MONOCYTES # (AUTO) 0.9 X10'3 (0-0.9); NEUTROPHILS # (AUTO) 4.3 X10'3 (1.8-7.7); NEUTROPHILS % (AUTO) 65.2 % (42-75); PLATELET COUNT 338 X10'3 (140-440); RED CELL DISTRIBUTION WIDTH 15.8 % (11.5-14.5); WHITE BLOOD COUNT 6.6 X10'3 (4.5-11.0)
[2021-01-04 23:01] LABS: ALANINE AMINOTRANSFERASE 27 U/L (12-78); ALBUMIN 3.6 G/DL (3.4-5.0); ALBUMIN/GLOBULIN RATIO 1.1 (1.1-1.5); ALKALINE PHOSPHATASE 207 IU/L (46-116); ANION GAP 9 (8-16); ASPARTATE AMINO TRANSFERASE 42 U/L (10-37); BILIRUBIN,TOTAL 0.5 MG/DL (0.1-1.0); BLOOD UREA NITROGEN 16 MG/DL (7-18); BUN/CREATININE RATIO 17.6 (5.4-32.0); CHLORIDE 89 MMOL/L (99-107); CREATININE 0.91 MG/DL (0.60-1.10); GLUCOSE 109 MG/DL (70-104); POTASSIUM 4.7 MMOL/L (3.5-5.1); SODIUM 123 MMOL/L (135-145); TOTAL CARBON DIOXIDE 25.4 MMOL/L (24-32); eGFR 83 ML/MIN
[2021-01-04 23:03] LABS: TROPONIN I < 0.04 NG/ML (0.0-0.05)
[2021-01-04 23:42] LABS: CLARITY,URINE CLEAR (Clear); COLOR,URINE YELLOW (Yellow); GLUCOSE, URINE NEGATIVE (Neg); KETONES,URINE NEGATIVE (Neg); LEUKOCYTE ESTERASE ,URINE NEGATIVE (Neg); NITRITES, URINE NEGATIVE (Neg); OCCULT BLOOD,URINE TRACE-INTACT (Neg); PROTEIN,URINE NEGATIVE (Neg); UROBILINOGEN,URINE 0.2 E.U/dL (0.2-1.0)
[2021-01-04] MEDS ORDERED: ONDA4TAB6 PO (23:44)
[2021-01-04 23:45] LABS: UA COLLECTION TYPE URINAL
[2021-01-04 23:49] LABS: BACTERIA,URINE FEW /HPF (Neg); SQUAMOUS EPITHELIAL CELL,UR FEW /LPF (FEW); WBC,URINE 0-4 /HPF (0-4)
[2021-01-04 23:50] LABS: MUCUS STRANDS FEW /LPF (Neg)
[2021-01-05 00:46] VITALS: BP 165/79
== END 2021-01-05 00:48 | disposition home or self-care (01) ==
LOC: ER 21:56
DX: R11.2 Nausea with vomiting, unspecified (principal); R06.6 Hiccough; G51.0 Bell's palsy; R53.1 Weakness; R10.84 Generalized abdominal pain; I25.10 Atherosclerotic heart disease of native coronary artery without angina pectoris; E78.00 Pure hypercholesterolemia, unspecified; I10 Essential (primary) hypertension; I25.2 Old myocardial infarction; J44.9 Chronic obstructive pulmonary disease, unspecified; Z95.0 Presence of cardiac pacemaker; Z98.890 Other specified postprocedural states; Z79.82 Long term (current) use of aspirin; Z79.899 Other long term (current) drug therapy
CPT/HCPCS: 36415; 71045; 80053; 81001; 84484; 85025; 93005; 96361; 96374; 96375; 99285; J2405; J2765; J3360; J3490; J7030

== ENCOUNTER 2021-05-12 19:22 | Emergency (ER) | payer MEDICARE ==
[~2021-05-12] VITALS: Ht 170.2 cm; Wt 89.5 kg
[~2021-05-12 19:22] MED LIST changes: +ONDA4TAB6 PO
[2021-05-12] MEDS ORDERED: ondansetron/PF 4mg/2ml inj IV ONE (22:15)
[2021-05-12] MEDS ORDERED: morphine 4 MG/ML inj SYRINge IV PRN (22:15)
[2021-05-12 22:43] LABS: BASOPHILS # (AUTO) 0.1 X10'3 (0-0.2); BASOPHILS % (AUTO) 0.7 % (0-1); EOSINOPHILS # (AUTO) 0.8 X10'3 (0-0.9); EOSINOPHILS % (AUTO) 6.8 % (0-6); HEMATOCRIT 39.6 % (42.0-52.0); HEMOGLOBIN 13.6 g/dl (14.0-17.9); LYMPHOCYTES # (AUTO) 2.1 X10'3 (1.1-4.8); LYMPHOCYTES % (AUTO) 18.3 % (21-51); MEAN CORPUSCULAR HEMOGLOBIN 32.2 PG (27.0-31.0); MEAN CORPUSCULAR HGB CONC 34.3 g/dL (33.0-36.5); MEAN PLATELET VOLUME 6.6 FL (7.4-10.4); MONOCYTES % (AUTO) 8.3 % (2-12); NEUTROPHILS # (AUTO) 7.6 X10'3 (1.8-7.7); NEUTROPHILS % (AUTO) 65.9 % (42-75); PLATELET COUNT 286 X10'3 (140-440); RED BLOOD COUNT 4.21 X10'6 (4.70-6.10); RED CELL DISTRIBUTION WIDTH 14.8 % (11.5-14.5); WHITE BLOOD COUNT 11.5 X10'3 (4.5-11.0)
[2021-05-12 23:01] LABS: ALANINE AMINOTRANSFERASE 31 U/L (12-78); ALBUMIN 3.8 G/DL (3.4-5.0); ALBUMIN/GLOBULIN RATIO 1.2 (1.1-1.5); ALKALINE PHOSPHATASE 167 IU/L (46-116); ANION GAP 7 (8-16); ASPARTATE AMINO TRANSFERASE 40 U/L (10-37); BILIRUBIN,TOTAL 0.2 MG/DL (0.1-1.0); BLOOD UREA NITROGEN 19 MG/DL (7-18); CALCIUM 8.9 MG/DL (8.5-10.1); CHLORIDE 107 MMOL/L (99-107); CREATININE 1.12 MG/DL (0.60-1.10); GLUCOSE 93 MG/DL (70-104); POTASSIUM 4.6 MMOL/L (3.5-5.1); SODIUM 141 MMOL/L (135-145); TOTAL CARBON DIOXIDE 27.4 MMOL/L (24-32); TOTAL PROTEIN 7.1 G/DL (6.4-8.2); eGFR 65 ML/MIN
--- NOTE | 2021-05-12 23:10 | NUR ---
PATIENT REFUSING FC AT THIS TIME, ABLE TO USE THE URINAL, MD AWARE.
[2021-05-12] MEDS ORDERED: HYDROcodone/acetaminophen 10/325mg tab PO ONE (23:30)
[2021-05-13 00:21] LABS: CLARITY,URINE CLEAR (Clear); COLOR,URINE YELLOW (Yellow); GLUCOSE, URINE NEGATIVE (Neg); KETONES,URINE NEGATIVE (Neg); LEUKOCYTE ESTERASE ,URINE NEGATIVE (Neg); NITRITES, URINE NEGATIVE (Neg); OCCULT BLOOD,URINE NEGATIVE (Neg); PROTEIN,URINE NEGATIVE (Neg); UROBILINOGEN,URINE 0.2 E.U/dL (0.2-1.0)
[2021-05-13] MEDS ORDERED: HYDR-3972 PO (00:37)
[2021-05-13 00:50] VITALS: BP 134/76
[2021-05-13 00:55] LABS: UA COLLECTION TYPE VOIDED
== END 2021-05-13 00:51 | disposition home or self-care (01) ==
LOC: ER 19:23
DX: S70.02XA Contusion of left hip, initial encounter (principal); R10.32 Left lower quadrant pain; F03.90 Unspecified dementia, unspecified severity, without behavioral disturbance, psychotic disturbance, mood disturbance, and anxiety; I25.10 Atherosclerotic heart disease of native coronary artery without angina pectoris; E78.00 Pure hypercholesterolemia, unspecified; I10 Essential (primary) hypertension; J44.9 Chronic obstructive pulmonary disease, unspecified; I25.2 Old myocardial infarction; G62.9 Polyneuropathy, unspecified; Z95.0 Presence of cardiac pacemaker; Z79.82 Long term (current) use of aspirin; Z79.899 Other long term (current) drug therapy; W01.0XXA Fall on same level from slipping, tripping and stumbling without subsequent striking against object, initial encounter; Z91.81 History of falling; Y93.01 Activity, walking, marching and hiking; Y92.89 Other specified places as the place of occurrence of the external cause; Y99.8 Other external cause status
CPT/HCPCS: 36415; 71045; 72170; 73502; 80053; 81003; 85025; 86885; 86900; 86901; 99284

== ENCOUNTER 2021-06-06 06:35 | Emergency (ER) | payer MEDICARE ==
[~2021-06-06] VITALS: Ht 170.2 cm; Wt 86.4 kg
[2021-06-06] MEDS ORDERED: dexamethasone sod phosphate 10mg/ml inj IV STA (07:07)
[2021-06-06] MEDS ORDERED: PRED20TA PO (07:08)
[2021-06-06] MEDS ORDERED: ALBU8HFA PO (07:08)
[2021-06-06] MEDS ORDERED: DOXY100C43 PO (07:08)
[2021-06-06] MEDS ORDERED: BUDE0.5A3 NEB (07:08)
[2021-06-06] MEDS ORDERED: albuterol 2.5 MG/3 ML nebule CONTNEB PRN (07:10)
[2021-06-06 08:09] LABS: BASOPHILS # (AUTO) 0.1 X10'3 (0-0.2); EOSINOPHILS # (AUTO) 0.8 X10'3 (0-0.9); EOSINOPHILS % (AUTO) 9.2 % (0-6); HEMATOCRIT 39.6 % (42.0-52.0); HEMOGLOBIN 13.7 g/dl (14.0-17.9); LYMPHOCYTES # (AUTO) 1.6 X10'3 (1.1-4.8); LYMPHOCYTES % (AUTO) 18.1 % (21-51); MEAN CORPUSCULAR HEMOGLOBIN 32.4 PG (27.0-31.0); MEAN CORPUSCULAR HGB CONC 34.5 g/dL (33.0-36.5); MEAN PLATELET VOLUME 7.1 FL (7.4-10.4); MONOCYTES % (AUTO) 10.8 % (2-12); NEUTROPHILS # (AUTO) 5.5 X10'3 (1.8-7.7); NEUTROPHILS % (AUTO) 60.9 % (42-75); PLATELET COUNT 282 X10'3 (140-440); RED BLOOD COUNT 4.22 X10'6 (4.70-6.10); RED CELL DISTRIBUTION WIDTH 14.5 % (11.5-14.5)
[2021-06-06 08:23] LABS: ALANINE AMINOTRANSFERASE 30 U/L (12-78); ALBUMIN/GLOBULIN RATIO 1.2 (1.1-1.5); ALKALINE PHOSPHATASE 203 IU/L (46-116); ANION GAP 13 (8-16); ASPARTATE AMINO TRANSFERASE 28 U/L (10-37); BILIRUBIN,TOTAL 0.3 MG/DL (0.1-1.0); BLOOD UREA NITROGEN 30 MG/DL (7-18); BUN/CREATININE RATIO 21.6 (5.4-32.0); CALCIUM 8.7 MG/DL (8.5-10.1); CHLORIDE 105 MMOL/L (99-107); CREATININE 1.39 MG/DL (0.60-1.10); POTASSIUM 4.6 MMOL/L (3.5-5.1); SODIUM 140 MMOL/L (135-145); TOTAL CARBON DIOXIDE 22.4 MMOL/L (24-32); TOTAL PROTEIN 7.4 G/DL (6.4-8.2); eGFR 51 ML/MIN
[2021-06-06 08:40] LABS: GLUCOSE 115 MG/DL (70-104)
[2021-06-06 08:56] VITALS: BP 113/67
== END 2021-06-06 10:20 | disposition home or self-care (01) ==
LOC: ER 06:36
DX: J44.1 Chronic obstructive pulmonary disease with (acute) exacerbation (principal); I12.9 Hypertensive chronic kidney disease with stage 1 through stage 4 chronic kidney disease, or unspecified chronic kidney disease; N18.9 Chronic kidney disease, unspecified; G62.9 Polyneuropathy, unspecified; E78.00 Pure hypercholesterolemia, unspecified; I25.2 Old myocardial infarction; Z98.890 Other specified postprocedural states; Z95.0 Presence of cardiac pacemaker; Z79.899 Other long term (current) drug therapy; Z79.82 Long term (current) use of aspirin
CPT/HCPCS: 36415; 71045; 80053; 83880; 84484; 85025; 93005; 94640; 94644; 96374; 99285; J1100; 94760; A7015

== ENCOUNTER 2021-12-18 03:14 | Emergency (ER) | payer MEDICARE ==
[~2021-12-18] VITALS: Ht 175.3 cm; Wt 86.8 kg
[~2021-12-18 03:14] MED LIST changes: +ALBU8.5H17 IH; -ALBU8.5H8 IH; +BUDE0.5A3 NEB
[2021-12-18] MEDS ORDERED: ipratropium/albuterol 3ml nebule NEB ONE (04:50)
[2021-12-18] MEDS ORDERED: predniSONE 20 mg tablet PO ONE (04:50)
[2021-12-18 05:34] VITALS: BP 130/68
[2021-12-18 05:52] LABS: ALANINE AMINOTRANSFERASE 29 U/L (12-78); ALBUMIN 3.5 G/DL (3.4-5.0); ALKALINE PHOSPHATASE 130 IU/L (46-116); ANION GAP 8 (8-16); ASPARTATE AMINO TRANSFERASE 31 U/L (10-37); BILIRUBIN,TOTAL 0.1 MG/DL (0.1-1.0); BLOOD UREA NITROGEN 26 MG/DL (7-18); BUN/CREATININE RATIO 23.4 (5.4-32.0); CALCIUM 8.8 MG/DL (8.5-10.1); CHLORIDE 107 MMOL/L (99-107); CREATININE 1.11 MG/DL (0.60-1.10); GLUCOSE 107 MG/DL (70-104); POTASSIUM 4.4 MMOL/L (3.5-5.1); SODIUM 144 MMOL/L (135-145); TOTAL CARBON DIOXIDE 29.2 MMOL/L (24-32); TOTAL PROTEIN 6.9 G/DL (6.4-8.2); eGFR 65 ML/MIN
[2021-12-18 05:55] LABS: BASOPHILS # (AUTO) 0.1 X10'3 (0-0.2); BASOPHILS % (AUTO) 1.3 % (0-1); EOSINOPHILS # (AUTO) 0.5 X10'3 (0-0.9); EOSINOPHILS % (AUTO) 10.1 % (0-6); HEMATOCRIT 37.6 % (42.0-52.0); HEMOGLOBIN 12.6 g/dl (14.0-17.9); LYMPHOCYTES # (AUTO) 1.2 X10'3 (1.1-4.8); MEAN CORPUSCULAR HEMOGLOBIN 32.4 PG (27.0-31.0); MEAN CORPUSCULAR HGB CONC 33.6 g/dL (33.0-36.5); MEAN CORPUSCULAR VOLUME 96.5 FL (78-98); MEAN PLATELET VOLUME 6.9 FL (7.4-10.4); MONOCYTES # (AUTO) 0.5 X10'3 (0-0.9); MONOCYTES % (AUTO) 11.4 % (2-12); NEUTROPHILS # (AUTO) 2.4 X10'3 (1.8-7.7); NEUTROPHILS % (AUTO) 51.2 % (42-75); PLATELET COUNT 292 X10'3 (140-440); RED CELL DISTRIBUTION WIDTH 14.6 % (11.5-14.5); WHITE BLOOD COUNT 4.8 X10'3 (4.5-11.0)
[2021-12-18] MEDS ORDERED: PRED20TA PO (06:10)
[2021-12-18] MEDS ORDERED: INHA1EAC9 INH (06:10)
== END 2021-12-18 06:47 | disposition home or self-care (01) ==
LOC: ER 03:15
DX: J44.1 Chronic obstructive pulmonary disease with (acute) exacerbation (principal); F03.90 Unspecified dementia, unspecified severity, without behavioral disturbance, psychotic disturbance, mood disturbance, and anxiety; E11.43 Type 2 diabetes mellitus with diabetic autonomic (poly)neuropathy; I25.10 Atherosclerotic heart disease of native coronary artery without angina pectoris; E78.00 Pure hypercholesterolemia, unspecified; I10 Essential (primary) hypertension; I25.2 Old myocardial infarction; Z95.0 Presence of cardiac pacemaker; Z79.82 Long term (current) use of aspirin; Z79.899 Other long term (current) drug therapy
CPT/HCPCS: 36415; 71045; 80053; 84484; 85025; 93005; 94640; 99285; J7512; 94760

== ENCOUNTER 2022-06-19 09:55 | Emergency (ER) | payer MEDICARE ==
[~2022-06-19] VITALS: Ht 180.3 cm; Wt 87.3 kg
[~2022-06-19 09:55] MED LIST changes: +INHA1EAC9 INH
[2022-06-19 09:59] VITALS: BP 123/72
[2022-06-19] MEDS ORDERED: CELE-193 PO (10:36)
[2022-06-19] MEDS ORDERED: DICL20GE TOP (10:36)
== END 2022-06-19 10:44 | disposition home or self-care (01) ==
LOC: ER 09:56
DX: M17.32 Unilateral post-traumatic osteoarthritis, left knee (principal); G62.9 Polyneuropathy, unspecified; F03.90 Unspecified dementia, unspecified severity, without behavioral disturbance, psychotic disturbance, mood disturbance, and anxiety; I25.10 Atherosclerotic heart disease of native coronary artery without angina pectoris; E78.00 Pure hypercholesterolemia, unspecified; I10 Essential (primary) hypertension; I25.2 Old myocardial infarction; J44.9 Chronic obstructive pulmonary disease, unspecified; Z95.0 Presence of cardiac pacemaker; Z79.899 Other long term (current) drug therapy; Z79.2 Long term (current) use of antibiotics
CPT/HCPCS: 99283; A6449

== ENCOUNTER 2022-06-24 17:00 | Emergency (ER) | payer MEDICARE ==
[~2022-06-24] VITALS: Ht 167.6 cm; Wt 88.2 kg
[~2022-06-24 17:00] MED LIST changes: +CELE-193 PO; +DICL20GE TOP
[2022-06-24 17:19] VITALS: BP 111/65
[2022-06-24] MEDS ORDERED: ketorolac trometh. 30mg/ml inj. IM ONE (19:50)
== END 2022-06-24 20:14 | disposition home or self-care (01) ==
LOC: ER 17:00
DX: G50.0 Trigeminal neuralgia (principal); E78.00 Pure hypercholesterolemia, unspecified; I10 Essential (primary) hypertension; J44.9 Chronic obstructive pulmonary disease, unspecified
CPT/HCPCS: 96372; 99283; J1885

== ENCOUNTER 2022-07-21 08:53 | Emergency (ER) | payer MEDICARE ==
[~2022-07-21] VITALS: Ht 167.6 cm; Wt 90.0 kg
[~2022-07-21 08:53] MED LIST changes: -CELE-193 PO
[2022-07-21 10:08] LABS: BASOPHILS # (AUTO) 0.1 X10'3 (0-0.2); BASOPHILS % (AUTO) 1.3 % (0-1); EOSINOPHILS # (AUTO) 0.4 X10'3 (0-0.9); HEMATOCRIT 40.9 % (42.0-52.0); HEMOGLOBIN 13.6 g/dl (14.0-17.9); LYMPHOCYTES # (AUTO) 1.5 X10'3 (1.1-4.8); LYMPHOCYTES % (AUTO) 30.8 % (21-51); MEAN CORPUSCULAR HEMOGLOBIN 32.4 PG (27.0-31.0); MEAN CORPUSCULAR HGB CONC 33.3 g/dL (33.0-36.5); MEAN CORPUSCULAR VOLUME 97.3 FL (78-98); MEAN PLATELET VOLUME 6.7 FL (7.4-10.4); MONOCYTES # (AUTO) 0.6 X10'3 (0-0.9); MONOCYTES % (AUTO) 13.5 % (2-12); NEUTROPHILS # (AUTO) 2.1 X10'3 (1.8-7.7); NEUTROPHILS % (AUTO) 45.4 % (42-75); PLATELET COUNT 234 X10'3 (140-440); RED BLOOD COUNT 4.21 X10'6 (4.70-6.10); RED CELL DISTRIBUTION WIDTH 15.6 % (11.5-14.5); WHITE BLOOD COUNT 4.7 X10'3 (4.5-11.0)
[2022-07-21 10:18] LABS: ALANINE AMINOTRANSFERASE 23 U/L (12-78); ALBUMIN 3.8 G/DL (3.4-5.0); ALBUMIN/GLOBULIN RATIO 1.2 (1.1-1.5); ALKALINE PHOSPHATASE 158 IU/L (46-116); ANION GAP 5 (8-16); ASPARTATE AMINO TRANSFERASE 29 U/L (10-37); BILIRUBIN,TOTAL 0.2 MG/DL (0.1-1.0); BLOOD UREA NITROGEN 37 MG/DL (7-18); BUN/CREATININE RATIO 22.3 (5.4-32.0); CHLORIDE 106 MMOL/L (99-107); CREATININE 1.66 MG/DL (0.60-1.10); POTASSIUM 5.9 MMOL/L (3.5-5.1); SODIUM 140 MMOL/L (135-145); eGFR 41 ML/MIN
[2022-07-21 10:22] LABS: GLUCOSE 88 MG/DL (70-104)
[2022-07-21] MEDS ORDERED: furosemide 10 MG/1 ML 10ml inj IV ONE (10:55)
[2022-07-21] MEDS ORDERED: normal saline 1000ML IV soln IVB ONE (10:55)
[2022-07-21] MEDS ORDERED: lactulose 20gm/30ml cup PO ONE (11:00)
[2022-07-21 15:08] LABS: ANION GAP 9 (8-16); BLOOD UREA NITROGEN 32 MG/DL (7-18); BUN/CREATININE RATIO 21.5 (5.4-32.0); CALCIUM 8.7 MG/DL (8.5-10.1); CHLORIDE 109 MMOL/L (99-107); CREATININE 1.49 MG/DL (0.60-1.10); SODIUM 143 MMOL/L (135-145); TOTAL CARBON DIOXIDE 25.2 MMOL/L (24-32); eGFR 46 ML/MIN
[2022-07-21 15:11] LABS: GLUCOSE 90 MG/DL (70-104)
--- NOTE | 2022-07-21 15:11 | NUR ---
Pt's daughter called to check in on her father.
[2022-07-21 16:00] VITALS: BP 142/69
== END 2022-07-21 16:05 | disposition home or self-care (01) ==
LOC: ER 08:54
DX: E87.5 Hyperkalemia (principal); G62.9 Polyneuropathy, unspecified; E86.0 Dehydration; E78.00 Pure hypercholesterolemia, unspecified; I10 Essential (primary) hypertension; J44.9 Chronic obstructive pulmonary disease, unspecified
CPT/HCPCS: 36415; 71045; 80048; 80053; 83880; 84484; 85025; 93005; 96361; 96374; 99285; J1940; J7030

== ENCOUNTER 2022-10-03 14:41 | Emergency (ER) | payer MEDICARE ==
[~2022-10-03] VITALS: Ht 167.6 cm; Wt 85.9 kg
[2022-10-03 15:15] LABS: BASOPHILS # (AUTO) 0.1 X10'3 (0-0.2); BASOPHILS % (AUTO) 0.9 % (0-1); EOSINOPHILS # (AUTO) 0.5 X10'3 (0-0.9); EOSINOPHILS % (AUTO) 7.5 % (0-6); HEMOGLOBIN 13.3 g/dl (14.0-17.9); LYMPHOCYTES # (AUTO) 1.8 X10'3 (1.1-4.8); MEAN CORPUSCULAR HGB CONC 33.2 g/dL (33.0-36.5); MEAN CORPUSCULAR VOLUME 99.3 FL (78-98); MEAN PLATELET VOLUME 6.7 FL (7.4-10.4); MONOCYTES # (AUTO) 0.6 X10'3 (0-0.9); MONOCYTES % (AUTO) 9.4 % (2-12); NEUTROPHILS # (AUTO) 3.6 X10'3 (1.8-7.7); NEUTROPHILS % (AUTO) 55.2 % (42-75); PLATELET COUNT 274 X10'3 (140-440); RED BLOOD COUNT 4.02 X10'6 (4.70-6.10); WHITE BLOOD COUNT 6.6 X10'3 (4.5-11.0)
[2022-10-03 15:27] LABS: ALANINE AMINOTRANSFERASE 41 U/L (12-78); ALBUMIN 4.2 G/DL (3.4-5.0); ALBUMIN/GLOBULIN RATIO 1.3 (1.1-1.5); ALKALINE PHOSPHATASE 145 IU/L (46-116); ANION GAP 10 (8-16); ASPARTATE AMINO TRANSFERASE 51 U/L (10-37); BILIRUBIN,TOTAL 0.3 MG/DL (0.1-1.0); BLOOD UREA NITROGEN 24 MG/DL (7-18); BUN/CREATININE RATIO 18.9 (5.4-32.0); CALCIUM 9.2 MG/DL (8.5-10.1); CHLORIDE 102 MMOL/L (99-107); CREATININE 1.27 MG/DL (0.60-1.10); GLUCOSE 91 MG/DL (70-104); POTASSIUM 5.5 MMOL/L (3.5-5.1); SODIUM 136 MMOL/L (135-145); TOTAL CARBON DIOXIDE 23.9 MMOL/L (24-32); TOTAL PROTEIN 7.4 G/DL (6.4-8.2); eGFR 56 ML/MIN
[2022-10-03 17:37] VITALS: BP 144/65
== END 2022-10-03 17:38 | disposition home or self-care (01) ==
LOC: ER 14:41
DX: M25.512 Pain in left shoulder (principal); E78.00 Pure hypercholesterolemia, unspecified; I10 Essential (primary) hypertension; J44.9 Chronic obstructive pulmonary disease, unspecified
CPT/HCPCS: 36415; 71045; 73030; 80053; 83880; 84484; 85025; 93005; 99285

== ENCOUNTER 2022-12-07 02:45 | Emergency (ER) | payer MEDICARE ==
[~2022-12-07] VITALS: Ht 172.7 cm; Wt 88.0 kg
[~2022-12-07 02:45] MED LIST changes: -ASPI-1 PO; +ASPI-611 PO; -BACL10TA PO; -BUDE0.5A3 NEB; +BUSP15TA3 PO; +CEFD300C3 PO; +DICL-182 PO; -DICL20GE TOP; -GABA-532 PO; -INHA1EAC9 INH; -NITR0.4T51 SL; -ONDA4TAB6 PO; +PRED10TA23 PO; +PREG100C55 PO
[2022-12-07 03:45] LABS: BASOPHILS # (AUTO) 0.1 X10'3 (0-0.2); BASOPHILS % (AUTO) 0.5 % (0-1); EOSINOPHILS # (AUTO) 0.4 X10'3 (0-0.9); EOSINOPHILS % (AUTO) 3.2 % (0-6); HEMOGLOBIN 13.3 g/dl (14.0-17.9); LYMPHOCYTES # (AUTO) 0.7 X10'3 (1.1-4.8); LYMPHOCYTES % (AUTO) 5.7 % (21-51); MEAN CORPUSCULAR HEMOGLOBIN 32.6 PG (27.0-31.0); MEAN CORPUSCULAR HGB CONC 33.2 g/dL (33.0-36.5); MEAN CORPUSCULAR VOLUME 98.1 FL (78-98); MEAN PLATELET VOLUME 6.5 FL (7.4-10.4); MONOCYTES # (AUTO) 0.9 X10'3 (0-0.9); MONOCYTES % (AUTO) 7.8 % (2-12); NEUTROPHILS # (AUTO) 10.1 X10'3 (1.8-7.7); NEUTROPHILS % (AUTO) 82.8 % (42-75); PLATELET COUNT 299 X10'3 (140-440); RED BLOOD COUNT 4.08 X10'6 (4.70-6.10); RED CELL DISTRIBUTION WIDTH 14.8 % (11.5-14.5); WHITE BLOOD COUNT 12.2 X10'3 (4.5-11.0)
[2022-12-07 04:01] LABS: ALANINE AMINOTRANSFERASE 42 U/L (12-78); ALBUMIN 3.8 G/DL (3.4-5.0); ALBUMIN/GLOBULIN RATIO 1.2 (1.1-1.5); ALKALINE PHOSPHATASE 168 IU/L (46-116); ANION GAP 8 (8-16); ASPARTATE AMINO TRANSFERASE 48 U/L (10-37); BILIRUBIN,TOTAL 0.3 MG/DL (0.1-1.0); BLOOD UREA NITROGEN 35 MG/DL (7-18); BUN/CREATININE RATIO 28.9 (5.4-32.0); CHLORIDE 104 MMOL/L (99-107); CREATININE 1.21 MG/DL (0.60-1.10); GLUCOSE 127 MG/DL (70-104); SODIUM 137 MMOL/L (135-145); TOTAL CARBON DIOXIDE 25.3 MMOL/L (24-32); TOTAL PROTEIN 6.9 G/DL (6.4-8.2); eGFR 59 ML/MIN
[2022-12-07] MEDS ORDERED: normal saline 1000ML IV soln IVB ONE (05:15)
[2022-12-07 05:50] LABS: CLARITY,URINE CLEAR (Clear); COLOR,URINE YELLOW (Yellow); GLUCOSE, URINE NEGATIVE (Neg); KETONES,URINE NEGATIVE (Neg); LEUKOCYTE ESTERASE ,URINE NEGATIVE (Neg); NITRITES, URINE NEGATIVE (Neg); OCCULT BLOOD,URINE TRACE-INTACT (Neg); PH,URINE 6.5 (4.8-8.0); PROTEIN,URINE NEGATIVE (Neg); UROBILINOGEN,URINE 0.2 E.U/dL (0.2-1.0)
[2022-12-07 05:55] LABS: UA COLLECTION TYPE CLN CATCH MIDSTREAM
[2022-12-07 05:56] LABS: BACTERIA,URINE NONE SEEN /HPF (Neg)
[2022-12-07 05:57] LABS: MUCUS STRANDS NONE SEEN /LPF (Neg); SQUAMOUS EPITHELIAL CELL,UR NONE SEEN /LPF (FEW); WBC,URINE 0-4 /HPF (0-4)
--- NOTE | 2022-12-07 12:00 | NUR ---
Pt's daughter called and informed about pt's status and d/c. Per daughter she is out of town and can't come picker tender helper pt. Daughter to pay for transport.
[2022-12-07 14:03] VITALS: BP 116/86
--- NOTE | 2022-12-07 16:33 | NUR ---
SPOKE WITH DAUGHTER SKYLA. SKYLA STATED " I HAVE CANCELLED [employer] AND WE ARE ON OUR WAY TO DATA REPORTING ANALYST DAD"
== END 2022-12-07 17:23 | disposition home or self-care (01) ==
LOC: ER 02:46
DX: M25.512 Pain in left shoulder (principal); R20.0 Anesthesia of skin; M25.462 Effusion, left knee; I25.10 Atherosclerotic heart disease of native coronary artery without angina pectoris; E78.00 Pure hypercholesterolemia, unspecified; I10 Essential (primary) hypertension; I25.2 Old myocardial infarction; J44.9 Chronic obstructive pulmonary disease, unspecified; Z95.0 Presence of cardiac pacemaker; Z98.890 Other specified postprocedural states; Z79.899 Other long term (current) drug therapy; W18.39XA Other fall on same level, initial encounter; Y93.89 Activity, other specified; Y92.89 Other specified places as the place of occurrence of the external cause; Y99.8 Other external cause status
CPT/HCPCS: 36415; 71045; 73020; 80053; 81001; 85025; 93005; 96360; 99285; J7030

== ENCOUNTER 2022-12-28 16:13 | Emergency (ER) | payer MEDICARE ==
[~2022-12-28] VITALS: Ht 177.8 cm; Wt 86.4 kg
[~2022-12-28 16:13] MED LIST changes: -ASPI-611 PO; -CEFD300C3 PO; -PRED10TA23 PO
[2022-12-28 16:26] VITALS: BP 143/70
--- NOTE | 2022-12-28 16:53 | NUR ---
Patients daughter requesting referral for social work. She states, "He lives alone and he needs help. We talked about him being put into a facility. His legs and his arms have been gettin g weaker and weaker over the past three months". Provider aware.
--- NOTE | 2022-12-28 17:20 | NUR ---
Patient seen in RAP by provider. Patient waiting in lobby for exam room in ED.
--- NOTE | 2022-12-28 17:25 | NUR ---
Patient complaining of right lower extremity lump x "weeks". Provider aware.
== END 2022-12-28 18:32 | disposition home or self-care (01) ==
LOC: ER 16:14
DX: M54.2 Cervicalgia (principal); M25.551 Pain in right hip; M25.462 Effusion, left knee; I25.10 Atherosclerotic heart disease of native coronary artery without angina pectoris; E78.00 Pure hypercholesterolemia, unspecified; I10 Essential (primary) hypertension; I25.2 Old myocardial infarction; G62.9 Polyneuropathy, unspecified; J44.9 Chronic obstructive pulmonary disease, unspecified; Z98.890 Other specified postprocedural states; Z95.1 Presence of aortocoronary bypass graft; Z60.2 Problems related to living alone; Z79.899 Other long term (current) drug therapy; W18.39XA Other fall on same level, initial encounter; Y93.89 Activity, other specified; Y92.89 Other specified places as the place of occurrence of the external cause; Y99.8 Other external cause status
CPT/HCPCS: 70450; 72125; 72170; 99284

== ENCOUNTER 2022-12-29 21:51 | Emergency (ER) | payer MEDICARE ==
[~2022-12-29] VITALS: Ht 162.6 cm; Wt 86.4 kg
[2022-12-29] MEDS ORDERED: HYDROcodone/acetaminophen 5mg/325mg tablet PO ONE (23:15)
[2022-12-29] MEDS ORDERED: LIDOcaine 5% patch TP ONE (23:15)
[2022-12-29] MEDS ORDERED: ondansetron 4mg rapidly disintigrating tab PO ONE (23:15)
[2022-12-29] MEDS ORDERED: acetaminophen 325mg tablet PO ONE (23:15)
[2022-12-29] MEDS ORDERED: ketorolac trometh inj. 60 MG/2 ML VIAL IM ONE (23:15)
[2022-12-29 23:48] LABS: BASOPHILS # (AUTO) 0.1 X10'3 (0-0.2); BASOPHILS % (AUTO) 1.1 % (0-1); EOSINOPHILS # (AUTO) 0.3 X10'3 (0-0.9); EOSINOPHILS % (AUTO) 3.8 % (0-6); HEMATOCRIT 37.1 % (42.0-52.0); HEMOGLOBIN 12.4 g/dl (14.0-17.9); LYMPHOCYTES # (AUTO) 1.8 X10'3 (1.1-4.8); MEAN CORPUSCULAR HEMOGLOBIN 32.7 PG (27.0-31.0); MEAN CORPUSCULAR HGB CONC 33.4 g/dL (33.0-36.5); MEAN CORPUSCULAR VOLUME 97.7 FL (78-98); MEAN PLATELET VOLUME 6.3 FL (7.4-10.4); MONOCYTES # (AUTO) 0.9 X10'3 (0-0.9); MONOCYTES % (AUTO) 11.4 % (2-12); NEUTROPHILS % (AUTO) 61.7 % (42-75); PLATELET COUNT 346 X10'3 (140-440); RED CELL DISTRIBUTION WIDTH 13.9 % (11.5-14.5); WHITE BLOOD COUNT 8.1 X10'3 (4.5-11.0)
[2022-12-30 00:07] LABS: ALANINE AMINOTRANSFERASE 32 U/L (12-78); ALBUMIN 3.6 G/DL (3.4-5.0); ALKALINE PHOSPHATASE 153 IU/L (46-116); ANION GAP 7 (8-16); ASPARTATE AMINO TRANSFERASE 39 U/L (10-37); BILIRUBIN,TOTAL 0.2 MG/DL (0.1-1.0); BLOOD UREA NITROGEN 28 MG/DL (7-18); BUN/CREATININE RATIO 28.6 (5.4-32.0); CALCIUM 8.7 MG/DL (8.5-10.1); CHLORIDE 106 MMOL/L (99-107); CREATININE 0.98 MG/DL (0.60-1.10); GLUCOSE 109 MG/DL (70-104); POTASSIUM 4.3 MMOL/L (3.5-5.1); SODIUM 139 MMOL/L (135-145); TOTAL CARBON DIOXIDE 25.6 MMOL/L (24-32); TOTAL PROTEIN 7.2 G/DL (6.4-8.2); eGFR 75 ML/MIN
[2022-12-30] MEDS ORDERED: normal saline 1000ml 1,000 ML IV ONE (00:20)
[2022-12-30] MEDS ORDERED: ketorolac trometh. 30mg/ml inj. IV ONE (00:20)
[2022-12-30] MEDS ORDERED: TRAM50TA2 PO (05:31)
--- NOTE | 2022-12-30 07:57 | NUR ---
Isis MICHAUD called and would like to speak to Assembly Cleaner.
[2022-12-30] MEDS ORDERED: albuterol 2.5 MG/3 ML nebule NEB STA (08:27)
[2022-12-30] MEDS ORDERED: ESCITALOPRAM OXALATE 5 MG TABLET PO ONE (09:00)
[2022-12-30] MEDS ORDERED: busPIRone 15mg tablet PO ONE (09:00)
[2022-12-30] MEDS ORDERED: phenytoin sod ER 100mg capsule PO STA (09:38)
[2022-12-30] MEDS ORDERED: acetaminophen 325mg tablet PO STA (09:38)
[2022-12-30] MEDS ORDERED: lisinopril 10 MG tablet PO ONE (09:40)
[2022-12-30] MEDS ORDERED: furosemide 20MG tablet PO ONE (09:40)
[2022-12-30] MEDS ORDERED: amLODIPine 5mg tablet PO ONE (09:40)
[2022-12-30] MEDS ORDERED: atorvastatin 20mg tablet PO ONE (09:40)
--- NOTE | 2022-12-30 09:44 | NUR ---
Spoke to Isis/KEILY,aware about patient's plan for dc.ETA 20 minutes.
[2022-12-30 10:20] VITALS: BP_DIAS 95
== END 2022-12-30 10:22 | disposition home or self-care (01) ==
LOC: ER 21:51
DX: R07.81 Pleurodynia (principal); I25.10 Atherosclerotic heart disease of native coronary artery without angina pectoris; E78.00 Pure hypercholesterolemia, unspecified; I25.2 Old myocardial infarction; J44.9 Chronic obstructive pulmonary disease, unspecified; G62.9 Polyneuropathy, unspecified; Z95.0 Presence of cardiac pacemaker; Z98.890 Other specified postprocedural states; Z79.899 Other long term (current) drug therapy; W18.39XA Other fall on same level, initial encounter; Y93.89 Activity, other specified; Y92.89 Other specified places as the place of occurrence of the external cause; Y99.8 Other external cause status
CPT/HCPCS: 36415; 70450; 71045; 71250; 72125; 80053; 84484; 85025; 94640; 96361; 96374; 99285; J1885; J7030; 94760

== ENCOUNTER 2023-01-16 13:27 | Emergency (ER) | payer MEDICARE ==
[~2023-01-16] VITALS: Ht 170.2 cm; Wt 81.4 kg
[~2023-01-16 13:27] MED LIST changes: +TRAM50TA2 PO
[2023-01-16 14:16] LABS: BASOPHILS # (AUTO) 0.1 X10'3 (0-0.2); BASOPHILS % (AUTO) 1.2 % (0-1); EOSINOPHILS # (AUTO) 0.1 X10'3 (0-0.9); EOSINOPHILS % (AUTO) 1.4 % (0-6); HEMATOCRIT 40.3 % (42.0-52.0); HEMOGLOBIN 13.4 g/dl (14.0-17.9); LYMPHOCYTES # (AUTO) 1.6 X10'3 (1.1-4.8); LYMPHOCYTES % (AUTO) 27.2 % (21-51); MEAN CORPUSCULAR HEMOGLOBIN 32.6 PG (27.0-31.0); MEAN CORPUSCULAR HGB CONC 33.2 g/dL (33.0-36.5); MEAN CORPUSCULAR VOLUME 98.5 FL (78-98); MEAN PLATELET VOLUME 6.8 FL (7.4-10.4); MONOCYTES # (AUTO) 0.7 X10'3 (0-0.9); MONOCYTES % (AUTO) 12.2 % (2-12); NEUTROPHILS # (AUTO) 3.4 X10'3 (1.8-7.7); PLATELET COUNT 349 X10'3 (140-440); WHITE BLOOD COUNT 5.8 X10'3 (4.5-11.0)
[2023-01-16 14:32] LABS: ALANINE AMINOTRANSFERASE 31 U/L (12-78); ALBUMIN 3.8 G/DL (3.4-5.0); ALBUMIN/GLOBULIN RATIO 1.2 (1.1-1.5); ALKALINE PHOSPHATASE 168 IU/L (46-116); ANION GAP 12 (8-16); ASPARTATE AMINO TRANSFERASE 43 U/L (10-37); BILIRUBIN,TOTAL 0.6 MG/DL (0.1-1.0); BLOOD UREA NITROGEN 20 MG/DL (7-18); BUN/CREATININE RATIO 20.2 (5.4-32.0); CALCIUM 9.1 MG/DL (8.5-10.1); CHLORIDE 104 MMOL/L (99-107); CREATININE 0.99 MG/DL (0.60-1.10); GLUCOSE 92 MG/DL (70-104); POTASSIUM 4.5 MMOL/L (3.5-5.1); SODIUM 138 MMOL/L (135-145); TOTAL CARBON DIOXIDE 22.4 MMOL/L (24-32); eGFR 75 ML/MIN
[2023-01-16 15:59] VITALS: BP 138/89
== END 2023-01-16 16:49 | disposition home or self-care (01) ==
LOC: ER 13:27
DX: I48.20 Chronic atrial fibrillation, unspecified (principal); R53.1 Weakness; E78.00 Pure hypercholesterolemia, unspecified; I10 Essential (primary) hypertension; J44.9 Chronic obstructive pulmonary disease, unspecified
CPT/HCPCS: 36415; 71045; 80053; 83880; 84484; 85025; 93005; 99285

== ENCOUNTER 2023-02-20 15:59 | Emergency (ER) | payer MEDICARE ==
[~2023-02-20] VITALS: Ht 170.2 cm; Wt 80.0 kg
[~2023-02-20 15:59] MED LIST changes: -TRAM50TA2 PO
[2023-02-20] MEDS ORDERED: diazepam 5mg tablet PO ONE (16:25)
[2023-02-20] MEDS ORDERED: CYCL-1 PO (17:30)
--- NOTE | 2023-02-20 18:04 | NUR ---
T/C to pt's daughter, Isis, to p/u pt. Isis states she will be here in 20 min.
[2023-02-20 18:07] VITALS: BP 131/72
[2023-02-21] MEDS ORDERED: CYCL-1 PO (16:01)
== END 2023-02-20 18:13 | disposition home or self-care (01) ==
LOC: ER 15:59
DX: S29.012A Strain of muscle and tendon of back wall of thorax, initial encounter (principal); M62.830 Muscle spasm of back; I25.10 Atherosclerotic heart disease of native coronary artery without angina pectoris; E78.00 Pure hypercholesterolemia, unspecified; I10 Essential (primary) hypertension; I25.2 Old myocardial infarction; J44.9 Chronic obstructive pulmonary disease, unspecified; Z98.890 Other specified postprocedural states; Z95.0 Presence of cardiac pacemaker; Z79.899 Other long term (current) drug therapy; X58.XXXA Exposure to other specified factors, initial encounter; Y93.89 Activity, other specified; Y92.89 Other specified places as the place of occurrence of the external cause; Y99.8 Other external cause status
CPT/HCPCS: 72128; 99284